=== PATIENT | female | born 1955 | race Caucasian/White ===

== ENCOUNTER → 2017-09-08 | Outpatient (CLI) | payer OTHER ==
[~2017-09-08] MED LIST: ALBU8.5H8 INH; AMBR10TA3 PO; AMLO2.5T2 PO; AZEL50GE5 TP; CETI10CA PO; CHOL10002 PO; ESZO2TAB22 PO; FLUT15.88 INH; FURO40TA6 PO; GLUC100015 PO; LEVO200T5 PO; LISI5TAB7 PO; LUTE20TA PO; OMEG1CAP24 PO; RANI150C PO; SPIR25TA PO; TRAZ100T15 PO; TRIA1CAP3 PO; UBID30CA9 PO; VITA150T PO; VITA400C14 PO
== END | disposition home or self-care (01) ==
LOC: CFH 10:04
PROVIDERS: ATTEND Registered Nurse
DX: K74.60 Unspecified cirrhosis of liver (principal); J98.11 Atelectasis; R91.1 Solitary pulmonary nodule; Z09 Encounter for follow-up examination after completed treatment for conditions other than malignant neoplasm; Z87.891 Personal history of nicotine dependence
CPT/HCPCS: 71250

== ENCOUNTER → 2018-09-05 | Outpatient (CLI) | payer OTHER ==
[~2018-09-05] MED LIST changes: +TRAZ-137 PO; -TRAZ100T15 PO
== END | disposition home or self-care (01) ==
LOC: CFH 07:21
PROVIDERS: ATTEND Registered Nurse
DX: Z12.31 Encounter for screening mammogram for malignant neoplasm of breast (principal); J45.30 Mild persistent asthma, uncomplicated; J98.11 Atelectasis; R91.1 Solitary pulmonary nodule; I28.1 Aneurysm of pulmonary artery; M47.814 Spondylosis without myelopathy or radiculopathy, thoracic region; K74.60 Unspecified cirrhosis of liver
CPT/HCPCS: 71250; 77067

== ENCOUNTER → 2019-04-12 | Outpatient (CLI) | payer OTHER ==
[~2019-04-12] MED LIST changes: +FLUT15.845 INH; -FLUT15.88 INH
== END | disposition home or self-care (01) ==
LOC: CFH 15:13
PROVIDERS: ATTEND Internal Medicine Cardiovascular Disease
DX: I08.8 Other rheumatic multiple valve diseases (principal); I27.0 Primary pulmonary hypertension; E78.5 Hyperlipidemia, unspecified; F14.10 Cocaine abuse, uncomplicated
CPT/HCPCS: 93306

== ENCOUNTER → 2020-03-05 | Outpatient (CLI) | payer OTHER ==
[~2020-03-05] MED LIST changes: +ATOR20TA37 PO; +CHOL10003 PO; +FAMO20TA7 PO; +FLUT1AER INH; +LUTE20CA2 PO; +MONT10TA11 PO; +OMEG1CAP6 PO; +POTA20TA89 PO; -TRAZ-137 PO; +TRAZ-175 PO; +VITA400C43 PO
[2020-03-05 16:27] LABS: INTERNATIONAL NORMALIZED RATIO 1.2 (0.93-1.1); PROTHROMBIN TIME 12.4 Seconds (9.6-11.5)
[2020-03-05 16:28] LABS: ALANINE AMINOTRANSFERASE 50 U/L (12-78); ALBUMIN 3.3 g/dL (3.4-5.0)
[2020-03-05 16:30] LABS: ALKALINE PHOSPHATASE 115 U/L (45-117); TOTAL PROTEIN 6.7 g/dL (6.4-8.2)
[2020-03-05 16:31] LABS: BASOPHILS % (AUTO) 1 % (0-1); EOSINOPHILS % (AUTO) 6 % (1-7); LYMPHOCYTES % (AUTO) 21 % (22-44); MEAN CORPUSCULAR HEMOGLOBIN 26.9 pg (27.0-34.8); MEAN CORPUSCULAR HGB CONC 32.2 g/dL (32.4-35.8); MEAN PLATELET VOLUME 9.4 fL (7.4-10.4); MONOCYTES % (AUTO) 11 % (2-9); NEUTROPHILS % (AUTO) 62 % (42-75); PLATELET COUNT 111 x10^3/uL (130-400); RED BLOOD COUNT 4.75 x10^6/uL (3.82-5.3); RED CELL DISTRIBUTION WIDTH 19.8 % (9.6-15.2)
[2020-03-05 16:35] LABS: MD NO
[2020-03-05 16:36] LABS: ANION GAP 6 mmol/L (5-15); CHLORIDE 110 mmol/L (98-107)
== END | disposition home or self-care (01) ==
LOC: STAR 14:41
PROVIDERS: ATTEND Orthopaedic Surgery
DX: Z01.818 Encounter for other preprocedural examination (principal); M16.11 Unilateral primary osteoarthritis, right hip
CPT/HCPCS: 36415; 80053; 83036; 85025; 85610; 85730; 87081; 93005

== ENCOUNTER → 2020-03-08 | Outpatient (CLI) | payer OTHER ==
[~2020-03-08] MED LIST changes: +OMEPRAZOLE PEG
== END | disposition home or self-care (01) ==
LOC: STAR 15:11
PROVIDERS: ATTEND Anesthesiology
DX: Z01.812 Encounter for preprocedural laboratory examination (principal); Z20.828 Contact with and (suspected) exposure to other viral communicable diseases
CPT/HCPCS: 36415; 87635

== ENCOUNTER 2020-03-13 07:45 | Day surgery (SDC) | payer OTHER ==
[~2020-03-13] VITALS: Ht 162.6 cm; Wt 96.0 kg
[~2020-03-13 07:45] MED LIST changes: +ACETAMINOPHEN 650 MG/20.3 ML UDC PO PRN; +ALBUTEROL HFA 90 MCG/SPRAY INH PRN; +BISACODYL 10 MG SUPP PR PRN; +DIPHENHYDRAMINE 50 MG CAPSULE PO PRN; +HYDROcodone/APAP 5/325 TABLET PO PRN; +MAGNESIUM HYDROXIDE 8%, 30ML UDC PO PRN; +NS + 20MEQ KCL 1,000 ML IV SCH; -OMEPRAZOLE PEG; +ONDANSETRON 2MG/ML, 2ML IV PRN; +ONDANSETRON 4 MG TABLET PO PRN; +SENNA/DOCUSATE TABLET PO PRN; +ZOLPIDEM 5MG TABLET PO PRN
[2020-03-13] MEDS ORDERED: LACTATED RINGERS 1,000 ML IV SCH ×2 (08:30→09:00)
[2020-03-13] MEDS ORDERED: CHLORHEXIDINE 15 ML UDC MM ONE (08:30)
[2020-03-13] MEDS ORDERED: OMEPRAZOLE PEG (08:51)
[2020-03-13] MEDS ORDERED: SPIRONOLACTONE 25 MG TABLET PO SCH (09:00)
[2020-03-13] MEDS ORDERED: POTASSIUM CHLORIDE 20 MEQ TAB.ER.PRT PO SCH (09:00)
[2020-03-13] MEDS ORDERED: DOCUSATE 100 MG CAPSULE PO SCH (09:00)
[2020-03-13] MEDS ORDERED: FLUTICASONE/VILANTEROL 100-25MCG/INH INH SCH (09:00)
[2020-03-13] MEDS ORDERED: LEVOTHYROXINE 200 MCG TABLET PO SCH (09:00)
[2020-03-13] MEDS ORDERED: FUROSEMIDE 20 MG TABLET PO SCH (09:00)
[2020-03-13] MEDS ORDERED: VANCOMYCIN 1,000 MG ONE (09:02)
[2020-03-13] MEDS ORDERED: TRANEXAMIC ACID 100 MG/ML, 10ML ONE ×2 (09:02)
[2020-03-13] MEDS ORDERED: ROPIvacaine/PF 0.5%, 20 ML ONE (09:02)
[2020-03-13] MEDS ORDERED: ROPIvacaine/PF 0.5%, 30 ML ONE (09:02)
[2020-03-13] MEDS ORDERED: SODIUM CHLORIDE 0.9% 50 ML ONE (09:03)
[2020-03-13] MEDS ORDERED: EPINEPHRINE 1 MG/ML, 1ML ONE (09:03)
[2020-03-13] MEDS ORDERED: KETOROLAC 60 MG/2 ML ONE (09:28)
[2020-03-13] MEDS ORDERED: FENTANYL PF 250 MCG/5ML ONE (09:40)
[2020-03-13] MEDS ORDERED: MIDAZOLAM 1 MG/ML, 2ML ONE (09:40)
[2020-03-13] MEDS ORDERED: SUGAMMADEX 200 MG/2 ML IVPush ONE (10:37)
[2020-03-13] MEDS ORDERED: SUCCINYLCHOLINE 20 MG/ML, 10ML ONE (10:37)
[2020-03-13] MEDS ORDERED: PROPOFOL 10 MG/ML, 20ML ONE (10:37)
[2020-03-13] MEDS ORDERED: ONDANSETRON 2MG/ML, 2ML ONE (10:37)
[2020-03-13] MEDS ORDERED: CEFAZOLIN 1,000 MG ONE (10:37)
[2020-03-13] MEDS ORDERED: DEXAMETHASONE 4 MG/ML, 1ML ONE (10:37)
[2020-03-13] MEDS ORDERED: NEOSTIGMINE 1 MG/ML, 10ML ONE (10:37)
[2020-03-13] MEDS ORDERED: GLYCOPYRROLATE 0.2MG/1ML, 5ML ONE (10:37)
[2020-03-13] MEDS ORDERED: ROCURONIUM 10MG/ML,5ML ONE (10:37)
[2020-03-13] MEDS ORDERED: FENTANYL PF 100 MCG/2ML ONE ×3 (10:41→11:37)
[2020-03-13] MEDS ORDERED: LABETALOL 5MG/ML, 20ML IV PRN (11:00)
[2020-03-13] MEDS ORDERED: KETOROLAC 30 MG/1 ML IV PRN (11:00)
[2020-03-13] MEDS ORDERED: OXYcodone 5 MG/5 ML ORAL.SOL UDC PO PRN (11:00)
[2020-03-13] MEDS ORDERED: hydrALAzine 20 MG/ML, 1ML IV PRN (11:00)
[2020-03-13] MEDS ORDERED: PROMETHAZINE 25 MG/ML, 1ML IV PRN (11:00)
[2020-03-13] MEDS ORDERED: HYDROmorphone 2 MG/ML, 1ML IVPush PRN (11:00)
[2020-03-13] MEDS ORDERED: ALBUTEROL SULFATE 2.5 MG/3 ML NPPB PRN (11:00)
[2020-03-13] MEDS ORDERED: DIAZEPAM 5 MG/ML, 2ML IVPush PRN (11:00)
[2020-03-13] MEDS ORDERED: MEPERIDINE/PF 25MG/0.5ML IVPush PRN (11:00)
[2020-03-13] MEDS ORDERED: ACETAMINOPHEN 325 MG TABLET PO PRN (11:00)
[2020-03-13] MEDS: FENTANYL PF 100 MCG/2ML IV PRN ×4 (11:20→11:50)
[2020-03-13] MEDS ORDERED: OXYcodone 5 MG/5 ML ORAL.SOL UDC ONE ×2 (11:34→17:04)
[2020-03-13] MEDS ORDERED: MEPERIDINE/PF 25MG/ML,1ML ONE (12:19)
[2020-03-13] MEDS ORDERED: CEFAZOLIN PMX 2GM/50ML 50 ML IVPB SCH (14:00)
[2020-03-13 14:16] VITALS: BP 111/72
[2020-03-13] MEDS: OXYcodone IR 5MG TABLET PO PRN ×2 (17:45→21:42)
[2020-03-13] MEDS ORDERED: ASPIRIN 81 MG TABLET EC PO SCH (18:00)
[2020-03-13 18:37] VITALS: BP 129/79
[2020-03-13] MEDS ORDERED: FAMOTIDINE 20 MG TABLET PO SCH (21:00)
[2020-03-13] MEDS ORDERED: ATORVASTATIN 20 MG TABLET PO SCH (21:00)
[2020-03-13] MEDS ORDERED: MONTELUKAST 10 MG TABLET PO SCH (21:00)
[2020-03-13] MEDS ORDERED: AMLODIPINE 2.5 MG TABLET PO SCH (21:00)
[2020-03-14] MEDS ORDERED: DEXAMETHASONE 4 MG/ML, 1ML IVPush SCH (06:00)
== END 2020-03-13 22:00 | disposition home or self-care (01) ==
LOC: OUT 07:45 → 4NE 13:06 → OUT 22:00
PROVIDERS: ATTEND Orthopaedic Surgery
DX: M16.11 Unilateral primary osteoarthritis, right hip (principal); M25.751 Osteophyte, right hip; I10 Essential (primary) hypertension; E78.5 Hyperlipidemia, unspecified; I27.20 Pulmonary hypertension, unspecified; I25.10 Atherosclerotic heart disease of native coronary artery without angina pectoris; J45.909 Unspecified asthma, uncomplicated; G47.33 Obstructive sleep apnea (adult) (pediatric); E07.9 Disorder of thyroid, unspecified; Z79.890 Hormone replacement therapy; Z79.899 Other long term (current) drug therapy; Z86.19 Personal history of other infectious and parasitic diseases; Z99.81 Dependence on supplemental oxygen; Z98.890 Other specified postprocedural states
CPT/HCPCS: 27130; 72170; 73501; 97161; 97165; C1713; C1776; J0171; J0330; J0690; J1100; J1885; J2175; J2250; J2405; J2704; J2710; J2795; J3010; J3370; Q0162; 76000; G0378

== ENCOUNTER 2020-04-27 13:17 | Inpatient (IN) | payer OTHER ==
[~2020-04-27] VITALS: Ht 162.6 cm; Wt 103.0 kg
[~2020-04-27 13:17] MED LIST changes: -ACETAMINOPHEN 650 MG/20.3 ML UDC PO PRN; -ALBUTEROL HFA 90 MCG/SPRAY INH PRN; -BISACODYL 10 MG SUPP PR PRN; -DIPHENHYDRAMINE 50 MG CAPSULE PO PRN; -HYDROcodone/APAP 5/325 TABLET PO PRN; -MAGNESIUM HYDROXIDE 8%, 30ML UDC PO PRN; -NS + 20MEQ KCL 1,000 ML IV SCH; +OMEPRAZOLE PEG; -ONDANSETRON 2MG/ML, 2ML IV PRN; -ONDANSETRON 4 MG TABLET PO PRN; -SENNA/DOCUSATE TABLET PO PRN; -ZOLPIDEM 5MG TABLET PO PRN
[2020-04-27 15:08] LABS: BASOPHILS % (AUTO) 1 % (0-1); EOSINOPHILS % (AUTO) 4 % (1-7); LYMPHOCYTES % (AUTO) 17 % (22-44); MEAN CORPUSCULAR HEMOGLOBIN 25.7 pg (27.0-34.8); MEAN CORPUSCULAR HGB CONC 31.6 g/dL (32.4-35.8); MONOCYTES % (AUTO) 12 % (2-9); NEUTROPHILS % (AUTO) 67 % (42-75); PLATELET COUNT 126 x10^3/uL (130-400); RED BLOOD COUNT 4.33 x10^6/uL (3.82-5.3)
[2020-04-27 15:14] LABS: INTERNATIONAL NORMALIZED RATIO 1.34 (0.93-1.1); MD NO; PROTHROMBIN TIME 14.2 Seconds (9.6-11.5)
[2020-04-27 15:17] LABS: ALBUMIN 2.9 g/dL (3.4-5.0); ANION GAP 5 mmol/L (5-15); CALCIUM 8.3 mg/dL (8.5-10.1); CHLORIDE 110 mmol/L (98-107)
[2020-04-27 15:26] LABS: CREATININE 0.69 mg/dL (0.55-1.02)
[2020-04-27 15:27] LABS: ALANINE AMINOTRANSFERASE 42 U/L (12-78); ALKALINE PHOSPHATASE 123 U/L (45-117); BILIRUBIN,TOTAL 2.7 mg/dL (0.2-1.0); TOTAL PROTEIN 6.3 g/dL (6.4-8.2)
--- NOTE | 2020-04-27 17:10 | NUR ---
PT WALKED BACK TO ROOM. DECLINED WHEELCHAIR. SOB ON ARRIVAL TO ROOM. SATS 93. ABD PAIN UPPER QUADRANTS, WORSE WHEN COUGHING. +FLUID WAVE. DENIES HX PARACENTESIS. HEP C/LIVER FAILURE. CALL [facility]. VSS.
--- NOTE | 2020-04-27 17:38 | NUR ---
Pt resting in bed, states bilat UQ abd pain is 5/10 "not too bad". Pt denies nausea. POC discussed with pt. Pt requests this RN call her at home and give him an update. This RN called and spoke with pt's Mohan. Pt denies other needs.
[2020-04-27] MEDS ORDERED: SODIUM CHLORIDE 0.9% 1,000 ML IV ONE (18:00)
[2020-04-27] MEDS ORDERED: SODIUM CHLORIDE FLUSH 10ML SYR IVF PRN (18:00)
--- NOTE | 2020-04-27 18:31 | NUR ---
[facility] at bedside to evaluate pt for admission. Pt resting in bed, NADN.
[2020-04-27] MEDS ORDERED: ONDANSETRON ODT 4 MG PO PRN (19:00)
[2020-04-27] MEDS ORDERED: MELATONIN 5 MG TABLET PO PRN (19:00)
[2020-04-27] MEDS ORDERED: hydrALAzine 20 MG/ML, 1ML IVPush PRN (19:00)
[2020-04-27] MEDS ORDERED: DOCUSATE 100 MG CAPSULE PO PRN (19:00)
--- NOTE | 2020-04-27 19:07 | NUR ---
Report to Nils MERINO.
[2020-04-27 20:53] VITALS: BP 122/71
[2020-04-27 21:39] LABS: MICROSCOPIC NOT IND
[2020-04-27] MEDS ORDERED: POTASSIUM CHLORIDE 20 MEQ TAB.ER.PRT PO ONE (23:00)
[2020-04-27] MEDS: ATORVASTATIN 20 MG TABLET PO SCH (23:30)
[2020-04-27] MEDS: MONTELUKAST 10 MG TABLET PO SCH (23:30)
[2020-04-27] MEDS: AMLODIPINE 2.5 MG TABLET PO SCH (23:31)
[2020-04-28] MEDS: morphine SULFATE 10 MG/ML, 1ML IVPush PRN ×3 (00:14→08:39)
[2020-04-28 01:48] VITALS: BP 118/68
[2020-04-28 05:54] LABS: BASOPHILS % (AUTO) 2 % (0-1); EOSINOPHILS % (AUTO) 7 % (1-7); LYMPHOCYTES % (AUTO) 21 % (22-44); MEAN CORPUSCULAR HEMOGLOBIN 25.7 pg (27.0-34.8); MEAN CORPUSCULAR HGB CONC 31.9 g/dL (32.4-35.8); MEAN PLATELET VOLUME 9.2 fL (7.4-10.4); MONOCYTES % (AUTO) 11 % (2-9); NEUTROPHILS % (AUTO) 59 % (42-75); PLATELET COUNT 131 x10^3/uL (130-400); RED BLOOD COUNT 4.09 x10^6/uL (3.82-5.3); RED CELL DISTRIBUTION WIDTH 19.3 % (9.6-15.2)
[2020-04-28 06:07] LABS: CHLORIDE 113 mmol/L (98-107)
[2020-04-28 06:11] LABS: MD NO
[2020-04-28 06:27] LABS: ALANINE AMINOTRANSFERASE 37 U/L (12-78); ALBUMIN 2.8 g/dL (3.4-5.0); ALKALINE PHOSPHATASE 110 U/L (45-117); ANION GAP 9 mmol/L (5-15); BILIRUBIN,TOTAL 2.6 mg/dL (0.2-1.0); CALCIUM 8.4 mg/dL (8.5-10.1); CREATININE 0.68 mg/dL (0.55-1.02); TOTAL PROTEIN 5.9 g/dL (6.4-8.2)
[2020-04-28 08:33] VITALS: BP 127/75
[2020-04-28] MEDS ORDERED: OMNIPAQUE 350 MG/ML, 100ML BOTTLE ONE (08:45)
[2020-04-28] MEDS: CHOLECALCIFEROL 1,000 UNIT TABLET PO SCH (09:00)
[2020-04-28] MEDS ORDERED: LEVOTHYROXINE 200 MCG TABLET PO SCH (09:00)
[2020-04-28] MEDS: VITAMIN E 400 UNITS CAPSULE PO SCH (09:00)
[2020-04-28] MEDS: POTASSIUM CHLORIDE 20 MEQ TAB.ER.PRT PO SCH (09:54)
[2020-04-28] MEDS: CETIRIZINE 10 MG TABLET PO SCH (09:55)
[2020-04-28] MEDS: FUROSEMIDE 40 MG TABLET PO SCH (09:55)
[2020-04-28] MEDS: SPIRONOLACTONE 25 MG TABLET PO SCH (09:55)
[2020-04-28] MEDS: OMEGA-3/FISH OIL CAPSULE PO SCH (09:56)
[2020-04-28 10:25] LABS: FREE T4 (FREE THYROXINE) 1.69 ng/dL (0.76-1.46)
[2020-04-28 13:20] VITALS: BP 116/68
[2020-04-28] MEDS: D5%-0.45NACL+KCL 20MEQ 1,000 ML IV SCH (14:06)
[2020-04-28] MEDS: FLUTICASONE NASAL SPRAY 16GM NAS SCH (17:00)
[2020-04-28] MEDS: TEMPLATE NON-FORMULARY MED. (Ambrisentan (Letairis**) 10 MG) PO SCH (17:00)
[2020-04-28] MEDS: TEMPLATE NON-FORMULARY MED. (Lutein** 20 MG) PO SCH (17:00)
[2020-04-28] MEDS: FLUTICASONE/VILANTEROL 100-25MCG/INH INH SCH (18:08)
[2020-04-28 19:11] VITALS: BP 112/69
[2020-04-28 20:23] VITALS: BP 97/59
[2020-04-28] MEDS: AMLODIPINE 2.5 MG TABLET PO SCH (20:24)
[2020-04-28] MEDS: MONTELUKAST 10 MG TABLET PO SCH (20:25)
[2020-04-28] MEDS: ATORVASTATIN 20 MG TABLET PO SCH (20:25)
[2020-04-28] MEDS: GABAPENTIN 300 MG CAPSULE PO PRN (22:07)
[2020-04-29] MEDS: D5%-0.45NACL+KCL 20MEQ 1,000 ML IV SCH ×3 (00:59→22:34)
[2020-04-29 01:44] VITALS: BP 93/69
[2020-04-29 06:03] LABS: ALBUMIN 2.4 g/dL (3.4-5.0); ANION GAP 4 mmol/L (5-15); CALCIUM 7.8 mg/dL (8.5-10.1); CHLORIDE 112 mmol/L (98-107); CREATININE 0.54 mg/dL (0.55-1.02)
[2020-04-29] MEDS: OMEPRAZOLE 20 MG CAPSULE.DR PEG SCH (06:43)
[2020-04-29 08:24] VITALS: BP 117/68
[2020-04-29] MEDS: FLUTICASONE/VILANTEROL 100-25MCG/INH INH SCH (10:35)
[2020-04-29] MEDS: FLUTICASONE NASAL SPRAY 16GM NAS SCH (10:35)
[2020-04-29] MEDS: POTASSIUM CHLORIDE 20 MEQ TAB.ER.PRT PO SCH (10:35)
[2020-04-29] MEDS: LIOTHYRONINE 5 MCG TABLET PO SCH (10:35)
[2020-04-29] MEDS: TIOTROPIUM BROMIDE 18 MCG/INH INH SCH (10:35)
[2020-04-29] MEDS: OMEGA-3/FISH OIL CAPSULE PO SCH (10:36)
[2020-04-29] MEDS: LEVOTHYROXINE 150 MCG TABLET PO SCH (10:36)
[2020-04-29] MEDS: VITAMIN E 400 UNITS CAPSULE PO SCH (10:36)
[2020-04-29] MEDS: FUROSEMIDE 40 MG TABLET PO SCH (10:37)
[2020-04-29] MEDS: SPIRONOLACTONE 25 MG TABLET PO SCH (10:37)
[2020-04-29] MEDS: CETIRIZINE 10 MG TABLET PO SCH (10:37)
[2020-04-29] MEDS: CHOLECALCIFEROL 1,000 UNIT TABLET PO SCH (10:37)
[2020-04-29] MEDS: TEMPLATE NON-FORMULARY MED. (Lutein** 20 MG) PO SCH (10:38)
[2020-04-29 14:00] VITALS: BP 112/69
[2020-04-29 18:55] VITALS: BP 117/67
[2020-04-29] MEDS: TEMPLATE NON-FORMULARY MED. (Ambrisentan (Letairis**) 10 MG) PO SCH (19:00)
[2020-04-29] MEDS: ATORVASTATIN 20 MG TABLET PO SCH (22:35)
[2020-04-29] MEDS: AMLODIPINE 2.5 MG TABLET PO SCH (22:35)
[2020-04-29] MEDS: MONTELUKAST 10 MG TABLET PO SCH (22:35)
[2020-04-29] MEDS: GABAPENTIN 300 MG CAPSULE PO PRN (22:36)
[2020-04-30 00:46] VITALS: BP 114/68
[2020-04-30] MEDS: D5%-0.45NACL+KCL 20MEQ 1,000 ML IV SCH ×2 (05:37→20:16)
[2020-04-30 05:42] LABS: BASOPHILS % (AUTO) 2 % (0-1); EOSINOPHILS % (AUTO) 8 % (1-7); LYMPHOCYTES % (AUTO) 22 % (22-44); MEAN CORPUSCULAR HGB CONC 32.2 g/dL (32.4-35.8); MONOCYTES % (AUTO) 13 % (2-9); NEUTROPHILS % (AUTO) 55 % (42-75); PLATELET COUNT 129 x10^3/uL (130-400); RED BLOOD COUNT 3.83 x10^6/uL (3.82-5.3); RED CELL DISTRIBUTION WIDTH 19.4 % (9.6-15.2)
[2020-04-30 05:47] LABS: CHLORIDE 111 mmol/L (98-107)
[2020-04-30 05:49] LABS: MD NO
[2020-04-30 05:56] LABS: ALANINE AMINOTRANSFERASE 32 U/L (12-78); ALBUMIN 2.6 g/dL (3.4-5.0); ALKALINE PHOSPHATASE 101 U/L (45-117); ANION GAP 9 mmol/L (5-15); BILIRUBIN,TOTAL 2.2 mg/dL (0.2-1.0); C-REACTIVE PROTEIN, QUANT 0.12 mg/dL (0.02-0.49); CREATININE 0.61 mg/dL (0.55-1.02); TOTAL PROTEIN 5.4 g/dL (6.4-8.2)
[2020-04-30] MEDS: OMEPRAZOLE 20 MG CAPSULE.DR PEG SCH (06:30)
[2020-04-30] MEDS: TEMPLATE NON-FORMULARY MED. (Ambrisentan (Letairis**) 10 MG) PO SCH (09:00)
[2020-04-30] MEDS: TEMPLATE NON-FORMULARY MED. (Lutein** 20 MG) PO SCH (09:00)
[2020-04-30] MEDS: OMEGA-3/FISH OIL CAPSULE PO SCH (09:00)
[2020-04-30] MEDS: FLUTICASONE/VILANTEROL 100-25MCG/INH INH SCH (09:00)
[2020-04-30 09:20] VITALS: BP 130/71
[2020-04-30] MEDS: LEVOTHYROXINE 150 MCG TABLET PO SCH (11:58)
[2020-04-30] MEDS: CHOLECALCIFEROL 1,000 UNIT TABLET PO SCH (11:58)
[2020-04-30] MEDS: CETIRIZINE 10 MG TABLET PO SCH (11:58)
[2020-04-30] MEDS: POTASSIUM CHLORIDE 20 MEQ TAB.ER.PRT PO SCH (11:59)
[2020-04-30] MEDS: FUROSEMIDE 40 MG TABLET PO SCH (11:59)
[2020-04-30] MEDS: VITAMIN E 400 UNITS CAPSULE PO SCH (11:59)
[2020-04-30] MEDS: FLUTICASONE NASAL SPRAY 16GM NAS SCH (12:06)
[2020-04-30] MEDS: SPIRONOLACTONE 25 MG TABLET PO SCH (12:06)
[2020-04-30] MEDS: TIOTROPIUM BROMIDE 18 MCG/INH INH SCH (12:06)
[2020-04-30] MEDS: LIOTHYRONINE 5 MCG TABLET PO SCH (12:06)
[2020-04-30 13:50] VITALS: BP 116/70
[2020-04-30 20:00] LABS: % IRON SATURATION 7 % (20-55); IRON LEVEL 17 mcg/dL (50-170); TOTAL IRON BINDING CAPACITY 238 mcg/dL (250-450)
[2020-04-30] MEDS ORDERED: POTASSIUM CHLORIDE 20 MEQ TAB.ER.PRT PO ONE (20:00)
[2020-04-30 20:03] VITALS: BP 110/61
[2020-04-30] MEDS ORDERED: FLU VACC QS2020-21(6MOS UP)/PF 60MCG/0.5 ML SYR IM ONE (20:30)
[2020-04-30] MEDS: MONTELUKAST 10 MG TABLET PO SCH (22:10)
[2020-04-30] MEDS: ATORVASTATIN 20 MG TABLET PO SCH (22:10)
[2020-04-30] MEDS: AMLODIPINE 2.5 MG TABLET PO SCH (22:11)
[2020-04-30] MEDS: GABAPENTIN 300 MG CAPSULE PO PRN (22:17)
[2020-05-01 01:57] VITALS: BP 129/62
[2020-05-01] MEDS: OMEPRAZOLE 20 MG CAPSULE.DR PEG SCH (05:05)
[2020-05-01] MEDS: D5%-0.45NACL+KCL 20MEQ 1,000 ML IV SCH ×2 (05:06→16:32)
[2020-05-01 06:15] LABS: BASOPHILS % (AUTO) 2 % (0-1); EOSINOPHILS % (AUTO) 7 % (1-7); LYMPHOCYTES % (AUTO) 18 % (22-44); MEAN CORPUSCULAR HEMOGLOBIN 25.7 pg (27.0-34.8); MEAN CORPUSCULAR HGB CONC 32.1 g/dL (32.4-35.8); MEAN PLATELET VOLUME 8.6 fL (7.4-10.4); MONOCYTES % (AUTO) 14 % (2-9); NEUTROPHILS % (AUTO) 59 % (42-75); PLATELET COUNT 126 x10^3/uL (130-400); RED BLOOD COUNT 3.88 x10^6/uL (3.82-5.3); RED CELL DISTRIBUTION WIDTH 19.1 % (9.6-15.2)
[2020-05-01 06:21] LABS: HCT (SEDRATE) 30.6 % (34.6-47.8)
[2020-05-01 06:22] LABS: MD NO
[2020-05-01 06:23] LABS: CHLORIDE 112 mmol/L (98-107)
[2020-05-01 06:38] LABS: ALANINE AMINOTRANSFERASE 32 U/L (12-78); ALBUMIN 2.7 g/dL (3.4-5.0); ALKALINE PHOSPHATASE 102 U/L (45-117); ANION GAP 9 mmol/L (5-15); BILIRUBIN,TOTAL 2.5 mg/dL (0.2-1.0); CALCIUM 8.1 mg/dL (8.5-10.1); CHOL/HDL RATIO 1.8; CHOLESTEROL, TOTAL 61 mg/dL (140-239); CREATININE 0.61 mg/dL (0.55-1.02); HDL CHOL % 54 % (28-40); HDL CHOLESTEROL (DIRECT) 33 mg/dL (40-60); LDL CHOLESTEROL,CALCULATED 20 mg/dL (54-169); LDL/HDL RATIO 0.6 (0.5-3.0); TOTAL PROTEIN 5.4 g/dL (6.4-8.2); TRIGLYCERIDES 39 mg/dL (50-200); VLDL CHOLESTEROL 8 mg/dL (0-25)
[2020-05-01 07:10] VITALS: BP 109/57
[2020-05-01] MEDS: TIOTROPIUM BROMIDE 18 MCG/INH INH SCH (09:00)
[2020-05-01] MEDS: TEMPLATE NON-FORMULARY MED. (Ambrisentan (Letairis**) 10 MG) PO SCH (09:00)
[2020-05-01] MEDS: FLUTICASONE NASAL SPRAY 16GM NAS SCH (09:00)
[2020-05-01] MEDS: LIOTHYRONINE 5 MCG TABLET PO SCH (09:00)
[2020-05-01] MEDS: TEMPLATE NON-FORMULARY MED. (Lutein** 20 MG) PO SCH (09:00)
[2020-05-01] MEDS: FLUTICASONE/VILANTEROL 100-25MCG/INH INH SCH (10:02)
[2020-05-01] MEDS: CHOLECALCIFEROL 1,000 UNIT TABLET PO SCH (10:05)
[2020-05-01] MEDS: OMEGA-3/FISH OIL CAPSULE PO SCH (10:05)
[2020-05-01] MEDS: VITAMIN E 400 UNITS CAPSULE PO SCH (10:05)
[2020-05-01] MEDS: POTASSIUM CHLORIDE 20 MEQ TAB.ER.PRT PO SCH (10:06)
[2020-05-01] MEDS: CETIRIZINE 10 MG TABLET PO SCH (10:07)
[2020-05-01] MEDS: LEVOTHYROXINE 150 MCG TABLET PO SCH (10:07)
[2020-05-01] MEDS: FUROSEMIDE 40 MG TABLET PO SCH (10:13)
[2020-05-01] MEDS: SPIRONOLACTONE 25 MG TABLET PO SCH (10:14)
[2020-05-01 13:20] VITALS: BP 119/70
[2020-05-01 21:27] VITALS: BP 138/76
[2020-05-01] MEDS: ATORVASTATIN 20 MG TABLET PO SCH (22:17)
[2020-05-01] MEDS: AMLODIPINE 2.5 MG TABLET PO SCH (22:17)
[2020-05-01] MEDS: MONTELUKAST 10 MG TABLET PO SCH (22:17)
[2020-05-01] MEDS: GABAPENTIN 300 MG CAPSULE PO PRN (22:22)
[2020-05-02] MEDS: D5%-0.45NACL+KCL 20MEQ 1,000 ML IV SCH ×3 (01:19→19:54)
[2020-05-02 01:42] VITALS: BP 130/71
[2020-05-02] MEDS: OMEPRAZOLE 20 MG CAPSULE.DR PEG SCH (06:12)
[2020-05-02 06:26] LABS: CHLORIDE 112 mmol/L (98-107)
[2020-05-02 06:30] LABS: ANION GAP 4 mmol/L (5-15); C-REACTIVE PROTEIN, QUANT 0.07 mg/dL (0.02-0.49); CALCIUM 8.1 mg/dL (8.5-10.1); CREATININE 0.59 mg/dL (0.55-1.02)
[2020-05-02 06:34] LABS: BASOPHILS % (AUTO) 2 % (0-1); EOSINOPHILS % (AUTO) 9 % (1-7); LYMPHOCYTES % (AUTO) 17 % (22-44); MEAN CORPUSCULAR HEMOGLOBIN 26.1 pg (27.0-34.8); MEAN CORPUSCULAR HGB CONC 32.5 g/dL (32.4-35.8); MEAN PLATELET VOLUME 8.7 fL (7.4-10.4); MONOCYTES % (AUTO) 15 % (2-9); NEUTROPHILS % (AUTO) 56 % (42-75); PLATELET COUNT 126 x10^3/uL (130-400); RED BLOOD COUNT 3.88 x10^6/uL (3.82-5.3); RED CELL DISTRIBUTION WIDTH 19.6 % (9.6-15.2)
[2020-05-02 06:58] LABS: MD NO
[2020-05-02 07:23] LABS: HCT (SEDRATE) 31.1 % (34.6-47.8)
[2020-05-02] MEDS: TIOTROPIUM BROMIDE 18 MCG/INH INH SCH (09:00)
[2020-05-02] MEDS: TEMPLATE NON-FORMULARY MED. (Ambrisentan (Letairis**) 10 MG) PO SCH (09:00)
[2020-05-02] MEDS: TEMPLATE NON-FORMULARY MED. (Lutein** 20 MG) PO SCH (09:00)
[2020-05-02] MEDS: FLUTICASONE NASAL SPRAY 16GM NAS SCH (09:00)
[2020-05-02 09:45] VITALS: BP 143/70
[2020-05-02] MEDS: LIOTHYRONINE 5 MCG TABLET PO SCH (10:06)
[2020-05-02] MEDS: CETIRIZINE 10 MG TABLET PO SCH (10:07)
[2020-05-02] MEDS: VITAMIN E 400 UNITS CAPSULE PO SCH (10:07)
[2020-05-02] MEDS: OMEGA-3/FISH OIL CAPSULE PO SCH (10:07)
[2020-05-02] MEDS: FUROSEMIDE 40 MG TABLET PO SCH (10:07)
[2020-05-02] MEDS: CHOLECALCIFEROL 1,000 UNIT TABLET PO SCH (10:07)
[2020-05-02] MEDS: POTASSIUM CHLORIDE 20 MEQ TAB.ER.PRT PO SCH (10:07)
[2020-05-02] MEDS: LEVOTHYROXINE 150 MCG TABLET PO SCH (10:08)
[2020-05-02] MEDS: SPIRONOLACTONE 25 MG TABLET PO SCH (10:08)
[2020-05-02] MEDS: FLUTICASONE/VILANTEROL 100-25MCG/INH INH SCH (10:09)
[2020-05-02 13:59] VITALS: BP 125/73
[2020-05-02 20:16] VITALS: BP 112/71
[2020-05-02] MEDS: AMLODIPINE 2.5 MG TABLET PO SCH (21:08)
[2020-05-02] MEDS: MONTELUKAST 10 MG TABLET PO SCH (21:08)
[2020-05-02] MEDS: ATORVASTATIN 20 MG TABLET PO SCH (21:08)
[2020-05-02] MEDS: GABAPENTIN 300 MG CAPSULE PO PRN (21:22)
[2020-05-03 01:57] VITALS: BP 95/51
[2020-05-03] MEDS: D5%-0.45NACL+KCL 20MEQ 1,000 ML IV SCH (05:42)
[2020-05-03] MEDS: OMEPRAZOLE 20 MG CAPSULE.DR PEG SCH (05:45)
[2020-05-03 08:41] VITALS: BP 128/72
[2020-05-03] MEDS: FLUTICASONE/VILANTEROL 100-25MCG/INH INH SCH (09:00)
[2020-05-03] MEDS: TEMPLATE NON-FORMULARY MED. (Lutein** 20 MG) PO SCH (09:00)
[2020-05-03] MEDS: FLUTICASONE NASAL SPRAY 16GM NAS SCH (09:00)
[2020-05-03] MEDS: TEMPLATE NON-FORMULARY MED. (Ambrisentan (Letairis**) 10 MG) PO SCH (09:00)
[2020-05-03] MEDS: TIOTROPIUM BROMIDE 18 MCG/INH INH SCH (09:00)
[2020-05-03 09:22] LABS: ALBUMIN 2.9 g/dL (3.4-5.0); ANION GAP 7 mmol/L (5-15); CALCIUM 8.3 mg/dL (8.5-10.1); CHLORIDE 111 mmol/L (98-107)
[2020-05-03 09:26] LABS: ALANINE AMINOTRANSFERASE 36 U/L (12-78); ALKALINE PHOSPHATASE 110 U/L (45-117); BILIRUBIN,TOTAL 2.5 mg/dL (0.2-1.0); CREATININE 0.62 mg/dL (0.55-1.02); TOTAL PROTEIN 6.3 g/dL (6.4-8.2)
[2020-05-03] MEDS: LIOTHYRONINE 5 MCG TABLET PO SCH (09:33)
[2020-05-03] MEDS: POTASSIUM CHLORIDE 20 MEQ TAB.ER.PRT PO SCH (09:33)
[2020-05-03] MEDS: VITAMIN E 400 UNITS CAPSULE PO SCH (09:34)
[2020-05-03] MEDS: CETIRIZINE 10 MG TABLET PO SCH (09:34)
[2020-05-03] MEDS: SPIRONOLACTONE 25 MG TABLET PO SCH (09:34)
[2020-05-03] MEDS: OMEGA-3/FISH OIL CAPSULE PO SCH (09:34)
[2020-05-03] MEDS: CHOLECALCIFEROL 1,000 UNIT TABLET PO SCH (09:34)
[2020-05-03] MEDS: FUROSEMIDE 40 MG TABLET PO SCH (09:34)
[2020-05-03] MEDS: LEVOTHYROXINE 150 MCG TABLET PO SCH (09:34)
[2020-05-03 13:20] VITALS: BP 116/68
[2020-05-03] MEDS ORDERED: OXYC5TAB3 PO (14:22)
[2020-05-03] MEDS ORDERED: TIOT18CA INH (14:22)
[2020-05-03] MEDS ORDERED: ONDA4TAB13 PO (14:22)
[2020-05-03] MEDS ORDERED: POTASSIUM CHLORIDE 20 MEQ TAB.ER.PRT PO ONE (14:30)
== END 2020-05-03 15:45 | disposition home or self-care (01) | DRG 439 ==
LOC: ED 17:35 → EDIP 18:04 → 4NE 20:39
PROVIDERS: ADMIT Family Medicine; ATTEND Internal Medicine
PROC: 5A09357 Assistance with Respiratory Ventilation, Less than 24 Consecutive Hours, Continuous Positive Airway Pressure (ICD-10-PCS; principal; 2020-04-29)
PROC: 5A09357 Assistance with Respiratory Ventilation, Less than 24 Consecutive Hours, Continuous Positive Airway Pressure (ICD-10-PCS; 2020-04-30)
PROC: 5A09357 Assistance with Respiratory Ventilation, Less than 24 Consecutive Hours, Continuous Positive Airway Pressure (ICD-10-PCS; 2020-05-02)
PROC: 5A09357 Assistance with Respiratory Ventilation, Less than 24 Consecutive Hours, Continuous Positive Airway Pressure (ICD-10-PCS; 2020-05-03)
DX: K85.90 Acute pancreatitis without necrosis or infection, unspecified (principal); R18.8 Other ascites; D69.6 Thrombocytopenia, unspecified; E03.9 Hypothyroidism, unspecified; K74.60 Unspecified cirrhosis of liver; D50.9 Iron deficiency anemia, unspecified; E66.01 Morbid (severe) obesity due to excess calories; E78.5 Hyperlipidemia, unspecified; E87.6 Hypokalemia; I10 Essential (primary) hypertension; G47.33 Obstructive sleep apnea (adult) (pediatric); B18.2 Chronic viral hepatitis C; R16.1 Splenomegaly, not elsewhere classified; Z96.641 Presence of right artificial hip joint; K76.0 Fatty (change of) liver, not elsewhere classified; I27.20 Pulmonary hypertension, unspecified; J45.909 Unspecified asthma, uncomplicated; K21.9 Gastro-esophageal reflux disease without esophagitis; Z79.899 Other long term (current) drug therapy; Z80.6 Family history of leukemia; Z82.3 Family history of stroke; Z82.5 Family history of asthma and other chronic lower respiratory diseases; Z83.3 Family history of diabetes mellitus; Z90.49 Acquired absence of other specified parts of digestive tract; Z90.710 Acquired absence of both cervix and uterus; Z23 Encounter for immunization; Z79.890 Hormone replacement therapy; Z68.39 Body mass index [BMI] 39.0-39.9, adult
CPT/HCPCS: 36415; 71045; 74160; 76700; 80048; 80053; 80061; 80069; 81003; 82150; 82728; 82787; 83036; 83540; 83550; 83690; 83735; 83880; 84439; 84443; 84478; 84481; 85025; 85610; 85651; 86140; 90686; 93005; 99285; G0378; Q9967; J2270; J3480; J7030

== ENCOUNTER 2020-05-23 15:15 | Inpatient (IN) | payer OTHER ==
[~2020-05-23] VITALS: Ht 162.6 cm; Wt 111.0 kg
[~2020-05-23 15:15] MED LIST changes: -MONT10TA11 PO; +MONT10TA96 PO; +ONDA4TAB13 PO; +OXYC5TAB3 PO; +TIOT18CA INH
[2020-05-23] MEDS ORDERED: ACETAMINOPHEN 325 MG TABLET PO ONE (16:00)
[2020-05-23] MEDS ORDERED: ACETAMINOPHEN 325 MG TABLET ONE (16:23)
[2020-05-23 16:32] LABS: BASOPHILS % (AUTO) 1 % (0-1); EOSINOPHILS % (AUTO) 0 % (1-7); LYMPHOCYTES % (AUTO) 4 % (22-44); MEAN CORPUSCULAR HEMOGLOBIN 24.9 pg (27.0-34.8); MEAN CORPUSCULAR HGB CONC 32.2 g/dL (32.4-35.8); MEAN PLATELET VOLUME 9.1 fL (7.4-10.4); MONOCYTES % (AUTO) 8 % (2-9); NEUTROPHILS % (AUTO) 87 % (42-75); PLATELET COUNT 126 x10^3/uL (130-400); RED BLOOD COUNT 4.33 x10^6/uL (3.82-5.3); RED CELL DISTRIBUTION WIDTH 20.3 % (9.6-15.2)
[2020-05-23 16:43] LABS: ALBUMIN 2.9 g/dL (3.4-5.0); ANION GAP 6 mmol/L (5-15); C-REACTIVE PROTEIN, QUANT 0.62 mg/dL (0.02-0.49); CHLORIDE 106 mmol/L (98-107)
[2020-05-23 16:48] LABS: ALANINE AMINOTRANSFERASE 38 U/L (12-78); ALKALINE PHOSPHATASE 107 U/L (45-117); CREATININE 0.78 mg/dL (0.55-1.02); TOTAL PROTEIN 6.2 g/dL (6.4-8.2)
[2020-05-23 16:51] LABS: D-DIMER (DIC) 11.01 ug/mlFEU (0.00-0.52); PROTIME 14.4 Seconds (9.6-11.5)
[2020-05-23] MEDS ORDERED: DOXYCYCLINE 100MG TABLET PO ONE (17:00)
[2020-05-23] MEDS ORDERED: DEXAMETHASONE 4 MG/ML, 1ML IV ONE (17:00)
[2020-05-23] MEDS ORDERED: POTASSIUM CHLORIDE 20 MEQ TAB.ER.PRT PO ONE (17:00)
[2020-05-23] MEDS ORDERED: CEFTRIAXONE PMX 1GM/50ML 50 ML IVPB ONE (17:00)
[2020-05-23] MEDS ORDERED: CEFTRIAXONE PMX 1GM/50ML 50 ML ONE (17:04)
[2020-05-23] MEDS ORDERED: DOXYCYCLINE 100MG TABLET ONE (17:04)
[2020-05-23] MEDS ORDERED: DEXAMETHASONE 4 MG/ML, 1ML ONE (17:04)
[2020-05-23] MEDS ORDERED: POTASSIUM CHLORIDE 20 MEQ TAB.ER.PRT ONE (17:04)
[2020-05-23] MEDS ORDERED: SODIUM CHLORIDE FLUSH 10ML SYR IVF PRN (17:30)
[2020-05-23] MEDS ORDERED: POTASSIUM CHLORIDE 20 MEQ in SODIUM CHLORIDE 0.9% 1,000 ML IV ONE (17:30)
[2020-05-23 17:38] LABS: MD MORPH REVIEW ONLY
[2020-05-23 17:39] LABS: ANISOCYTOSIS 1+
[2020-05-23 17:40] LABS: <PLATELET ESTIMATE> DECREASED; <PLT MORPHOLOGY> NORMAL PLT MORPH; HYPOCHROMIA 1+; OVALOCYTES 1+; POLYCHROMASIA 1+
[2020-05-23] MEDS ORDERED: OMNIPAQUE 350 MG/ML, 100ML BOTTLE ONE (18:51)
[2020-05-23] MEDS ORDERED: GUAIFENESIN/DM 200-20MG, 10ML UDC PO PRN (19:30)
[2020-05-23] MEDS ORDERED: LIDODERM 5% PATCH TD PRN (19:30)
[2020-05-23] MEDS ORDERED: PHARMACY MAY ADJ FOR RENAL FX MC PRN (19:30)
[2020-05-23] MEDS ORDERED: LABETALOL 5MG/ML, 20ML IVPush PRN (19:30)
[2020-05-23] MEDS ORDERED: IBUPROFEN 600 MG TABLET PO PRN (19:30)
[2020-05-23] MEDS ORDERED: ONDANSETRON ODT 4 MG PO PRN (19:30)
[2020-05-23] MEDS ORDERED: DOCUSATE 100 MG CAPSULE PO PRN (19:30)
[2020-05-23] MEDS ORDERED: NS + 20MEQ KCL 1,000 ML IV ONE (19:49)
[2020-05-23] MEDS ORDERED: LIDODERM REMOVE PATCH NOTE XX PRN (20:00)
[2020-05-23] MEDS ORDERED: ENOXAPARIN 40 MG/0.4 ML ONE (20:15)
[2020-05-23] MEDS: ASCORBIC ACID 500 MG TABLET PO SCH (20:57)
[2020-05-23] MEDS: ENOXAPARIN 40 MG/0.4 ML SQ SCH (20:58)
[2020-05-23 21:00] VITALS: BP 109/63
[2020-05-23] MEDS: POTASSIUM CHLORIDE 20 MEQ in LACTATED RINGERS 1,000 ML IV SCH (21:22)
[2020-05-23 22:32] LABS: RAPID INFLUENZA A Negative (Negative); RAPID INFLUENZA B Negative (Negative)
[2020-05-24 00:01] VITALS: BP 110/56
[2020-05-24] MEDS: POTASSIUM CHLORIDE 20 MEQ in LACTATED RINGERS 1,000 ML IV SCH (05:21)
[2020-05-24] MEDS: ALBUTEROL HFA 90 MCG/SPRAY INH SCH ×4 (05:22→20:43)
[2020-05-24 06:43] VITALS: BP 111/63
[2020-05-24 07:09] LABS: BASOPHILS % (AUTO) 0 % (0-1); EOSINOPHILS % (AUTO) 0 % (1-7); LYMPHOCYTES % (AUTO) 7 % (22-44); MEAN CORPUSCULAR HEMOGLOBIN 24.4 pg (27.0-34.8); MEAN CORPUSCULAR HGB CONC 31.6 g/dL (32.4-35.8); MEAN PLATELET VOLUME 9.4 fL (7.4-10.4); MONOCYTES % (AUTO) 5 % (2-9); NEUTROPHILS % (AUTO) 89 % (42-75); PLATELET COUNT 98 x10^3/uL (130-400); RED BLOOD COUNT 4.23 x10^6/uL (3.82-5.3); RED CELL DISTRIBUTION WIDTH 20.5 % (9.6-15.2)
[2020-05-24 07:10] LABS: HCT (SEDRATE) 31.7 % (34.6-47.8); MD NO
[2020-05-24 07:16] LABS: ANION GAP 9 mmol/L (5-15); C-REACTIVE PROTEIN, QUANT 0.87 mg/dL (0.02-0.49); CALCIUM 8.8 mg/dL (8.5-10.1); CHLORIDE 106 mmol/L (98-107); CREATININE 0.64 mg/dL (0.55-1.02)
[2020-05-24 07:21] LABS: CREATINE KINASE, TOTAL 208 U/L (26-192)
[2020-05-24] MEDS: ZINC SULFATE 220 MG CAPSULE PO SCH (08:45)
[2020-05-24] MEDS: DEXAMETHASONE 4 MG/ML, 1ML IVPush SCH (08:45)
[2020-05-24] MEDS: ASCORBIC ACID 500 MG TABLET PO SCH ×2 (08:45→20:38)
[2020-05-24] MEDS: DOXYCYCLINE 100 MG in DEXTROSE 5% 250 ML IV SCH ×2 (08:45→21:26)
[2020-05-24] MEDS: CHOLECALCIFEROL 5,000u TAB PO SCH (08:46)
[2020-05-24] MEDS ORDERED: DOXY100T23 PO (11:22)
[2020-05-24] MEDS ORDERED: DEXA6TAB6 PO (11:23)
[2020-05-24] MEDS ORDERED: BENZ100C PO (11:24)
[2020-05-24] MEDS: FLUTICASONE/VILANTEROL 100-25MCG/INH INH SCH (11:28)
[2020-05-24] MEDS: TIOTROPIUM BROMIDE 18 MCG/INH INH SCH (11:28)
[2020-05-24 12:41] VITALS: BP 123/69
[2020-05-24] MEDS ORDERED: VANCOMYCIN PER PHARMACY MC PRN (15:00)
[2020-05-24] MEDS ORDERED: PHARMACOKINETIC MONITORING MC PRN (15:30)
[2020-05-24] MEDS ORDERED: VANCOMYCIN 2,500 MG in SODIUM CHLORIDE 0.9% 500 ML IV ONE (15:30)
[2020-05-24] MEDS ORDERED: PHARMACOKINETIC CONSULTATION MC ONE (15:30)
[2020-05-24] MEDS ORDERED: CEFTRIAXONE PMX 1GM/50ML 50 ML IV SCH (17:00)
[2020-05-24] MEDS: ENOXAPARIN 40 MG/0.4 ML SQ SCH (20:39)
[2020-05-24 20:46] VITALS: BP 112/68
[2020-05-25 02:11] VITALS: BP 110/66
[2020-05-25] MEDS: ALBUTEROL HFA 90 MCG/SPRAY INH SCH ×4 (06:00→20:07)
[2020-05-25 07:08] LABS: HCT (SEDRATE) 30.5 % (34.6-47.8)
[2020-05-25 07:22] LABS: C-REACTIVE PROTEIN, QUANT 0.79 mg/dL (0.02-0.49); D-DIMER 8.94 ug/mlFEU (0.00-0.52); INTERNATIONAL NORMALIZED RATIO 1.34 (0.93-1.1); PROTHROMBIN TIME 14.2 Seconds (9.6-11.5)
[2020-05-25 07:40] VITALS: BP 112/70
[2020-05-25] MEDS ORDERED: POTASSIUM CHLORIDE 20 MEQ TAB.ER.PRT PO ONE (08:00)
[2020-05-25] MEDS: FUROSEMIDE 40 MG TABLET PO SCH (08:30)
[2020-05-25] MEDS: ZINC SULFATE 220 MG CAPSULE PO SCH (08:30)
[2020-05-25] MEDS: CETIRIZINE 10 MG TABLET PO SCH (08:30)
[2020-05-25] MEDS: ASCORBIC ACID 500 MG TABLET PO SCH ×2 (08:30→20:08)
[2020-05-25] MEDS: CHOLECALCIFEROL 5,000u TAB PO SCH (08:31)
[2020-05-25] MEDS: DEXAMETHASONE 4 MG/ML, 1ML IVPush SCH (08:31)
[2020-05-25] MEDS: SPIRONOLACTONE 25 MG TABLET PO SCH (08:31)
[2020-05-25] MEDS: TIOTROPIUM BROMIDE 18 MCG/INH INH SCH (08:35)
[2020-05-25] MEDS: FLUTICASONE/VILANTEROL 100-25MCG/INH INH SCH (08:35)
[2020-05-25] MEDS: DOXYCYCLINE 100 MG in DEXTROSE 5% 250 ML IV SCH ×2 (09:38→20:07)
[2020-05-25] MEDS: VANCOMYCIN 2,000 MG in SODIUM CHLORIDE 0.9% 500 ML IV SCH (11:01)
[2020-05-25 13:29] VITALS: BP 113/66
[2020-05-25] MEDS: ENOXAPARIN 40 MG/0.4 ML SQ SCH (19:30)
[2020-05-25] MEDS: MONTELUKAST 10 MG TABLET PO SCH (20:08)
[2020-05-25] MEDS: MELATONIN 5 MG TABLET PO PRN ×2 (20:08→20:09)
[2020-05-25 20:36] VITALS: BP 115/70
[2020-05-26 00:39] VITALS: BP 125/70
[2020-05-26] MEDS: VANCOMYCIN 2,000 MG in SODIUM CHLORIDE 0.9% 500 ML IV SCH (04:47)
[2020-05-26] MEDS: ALBUTEROL HFA 90 MCG/SPRAY INH SCH ×4 (04:47→23:05)
[2020-05-26 06:23] VITALS: BP 117/71
[2020-05-26 06:59] LABS: HCT (SEDRATE) 30.5 % (34.6-47.8)
[2020-05-26 07:09] LABS: C-REACTIVE PROTEIN, QUANT 0.51 mg/dL (0.02-0.49)
[2020-05-26 09:15] LABS: ANION GAP 9 mmol/L (5-15); CALCIUM 9.2 mg/dL (8.5-10.1); CHLORIDE 110 mmol/L (98-107); CREATININE 0.63 mg/dL (0.55-1.02)
[2020-05-26] MEDS: FLUTICASONE/VILANTEROL 100-25MCG/INH INH SCH (09:40)
[2020-05-26] MEDS: TIOTROPIUM BROMIDE 18 MCG/INH INH SCH (09:41)
[2020-05-26] MEDS: ZINC SULFATE 220 MG CAPSULE PO SCH (09:41)
[2020-05-26] MEDS: DOXYCYCLINE 100 MG in DEXTROSE 5% 250 ML IV SCH ×2 (09:41→22:36)
[2020-05-26] MEDS: DEXAMETHASONE 4 MG/ML, 1ML IVPush SCH (09:41)
[2020-05-26] MEDS: ASCORBIC ACID 500 MG TABLET PO SCH (09:42)
[2020-05-26] MEDS: FUROSEMIDE 40 MG TABLET PO SCH (09:42)
[2020-05-26] MEDS: SPIRONOLACTONE 25 MG TABLET PO SCH (09:42)
[2020-05-26] MEDS: CHOLECALCIFEROL 5,000u TAB PO SCH (09:42)
[2020-05-26] MEDS: CETIRIZINE 10 MG TABLET PO SCH (09:42)
[2020-05-26 12:03] VITALS: BP 113/66
[2020-05-26 13:45] VITALS: BP 119/68
[2020-05-26 20:21] VITALS: BP 110/55
[2020-05-26] MEDS ORDERED: VANCOMYCIN 2,200 MG in SODIUM CHLORIDE 0.9% 500 ML IV SCH (22:30)
[2020-05-26] MEDS: ENOXAPARIN 40 MG/0.4 ML SQ SCH (23:03)
[2020-05-26] MEDS: MONTELUKAST 10 MG TABLET PO SCH (23:06)
[2020-05-27 01:38] VITALS: BP 116/60
[2020-05-27 06:02] LABS: HCT (SEDRATE) 30.1 % (34.6-47.8)
[2020-05-27] MEDS: ALBUTEROL HFA 90 MCG/SPRAY INH SCH ×4 (06:22→22:14)
[2020-05-27 06:23] LABS: D-DIMER 12.68 ug/mlFEU (0.00-0.52); INTERNATIONAL NORMALIZED RATIO 1.33 (0.93-1.1); PROTHROMBIN TIME 14.1 Seconds (9.6-11.5)
[2020-05-27 06:25] LABS: C-REACTIVE PROTEIN, QUANT 0.33 mg/dL (0.02-0.49)
[2020-05-27 07:35] VITALS: BP 124/75
[2020-05-27] MEDS: Ambrisentan 10 MG HOMEMEDPO SCH (09:00)
[2020-05-27] MEDS: FLUTICASONE/VILANTEROL 100-25MCG/INH INH SCH (11:07)
[2020-05-27] MEDS: TIOTROPIUM BROMIDE 18 MCG/INH INH SCH (11:08)
[2020-05-27] MEDS: CEFAZOLIN 2,000 MG in SODIUM CHLORIDE 0.9% 50 ML IV SCH ×2 (11:09→18:43)
[2020-05-27] MEDS: FUROSEMIDE 40 MG/4 ML IV SCH ×2 (11:10→17:26)
[2020-05-27] MEDS: CETIRIZINE 10 MG TABLET PO SCH (11:11)
[2020-05-27] MEDS: SPIRONOLACTONE 25 MG TABLET PO SCH (11:11)
[2020-05-27 12:57] VITALS: BP 145/81
[2020-05-27] MEDS: DOXYCYCLINE 100 MG in DEXTROSE 5% 250 ML IV SCH (14:08)
[2020-05-27 19:43] VITALS: BP 112/65
[2020-05-27] MEDS: MONTELUKAST 10 MG TABLET PO SCH (22:14)
[2020-05-27] MEDS: ENOXAPARIN 40 MG/0.4 ML SQ SCH (22:15)
[2020-05-28] MEDS: DOXYCYCLINE 100 MG in DEXTROSE 5% 250 ML IV SCH ×2 (02:08→14:15)
[2020-05-28] MEDS: CEFAZOLIN 2,000 MG in SODIUM CHLORIDE 0.9% 50 ML IV SCH ×3 (03:13→20:01)
[2020-05-28 03:47] VITALS: BP 110/69
[2020-05-28] MEDS: ALBUTEROL HFA 90 MCG/SPRAY INH SCH ×4 (05:17→20:06)
[2020-05-28 06:21] LABS: ANION GAP 5 mmol/L (5-15); C-REACTIVE PROTEIN, QUANT 0.18 mg/dL (0.02-0.49); CALCIUM 8.1 mg/dL (8.5-10.1); CHLORIDE 110 mmol/L (98-107)
[2020-05-28 06:26] LABS: CREATINE KINASE, TOTAL 67 U/L (26-192); CREATININE 0.57 mg/dL (0.55-1.02)
[2020-05-28 08:35] VITALS: BP 113/70
[2020-05-28] MEDS: FUROSEMIDE 40 MG/4 ML IV SCH ×2 (08:58→17:18)
[2020-05-28] MEDS: CETIRIZINE 10 MG TABLET PO SCH (08:58)
[2020-05-28] MEDS: SPIRONOLACTONE 25 MG TABLET PO SCH (08:58)
[2020-05-28] MEDS: Ambrisentan 10 MG HOMEMEDPO SCH (09:00)
[2020-05-28] MEDS: TIOTROPIUM BROMIDE 18 MCG/INH INH SCH (11:22)
[2020-05-28] MEDS: FLUTICASONE/VILANTEROL 100-25MCG/INH INH SCH (11:22)
[2020-05-28 13:35] VITALS: BP 109/68
[2020-05-28] MEDS ORDERED: OMNIPAQUE 350 MG/ML, 100ML BOTTLE ONE (16:00)
[2020-05-28] MEDS: POTASSIUM CHLORIDE 20 MEQ TAB.ER.PRT PO SCH (18:35)
[2020-05-28] MEDS: ENOXAPARIN 40 MG/0.4 ML SQ SCH (20:00)
[2020-05-28] MEDS: MONTELUKAST 10 MG TABLET PO SCH (20:01)
[2020-05-28 20:27] VITALS: BP 107/55
[2020-05-29 02:24] VITALS: BP 120/62
[2020-05-29] MEDS: DOXYCYCLINE 100 MG in DEXTROSE 5% 250 ML IV SCH ×2 (02:25→13:51)
[2020-05-29] MEDS: CEFAZOLIN 2,000 MG in SODIUM CHLORIDE 0.9% 50 ML IV SCH ×3 (03:59→20:37)
[2020-05-29 05:29] LABS: HCT (SEDRATE) 32.2 % (34.6-47.8)
[2020-05-29 05:31] LABS: BASOPHILS % (AUTO) 1 % (0-1); EOSINOPHILS % (AUTO) 7 % (1-7); LYMPHOCYTES % (AUTO) 20 % (22-44); MEAN CORPUSCULAR HEMOGLOBIN 24.5 pg (27.0-34.8); MEAN PLATELET VOLUME 8.7 fL (7.4-10.4); MONOCYTES % (AUTO) 11 % (2-9); NEUTROPHILS % (AUTO) 62 % (42-75); PLATELET COUNT 110 x10^3/uL (130-400); RED CELL DISTRIBUTION WIDTH 20.1 % (9.6-15.2)
[2020-05-29 05:36] LABS: ALBUMIN 2.6 g/dL (3.4-5.0); ANION GAP 4 mmol/L (5-15); CALCIUM 8.3 mg/dL (8.5-10.1); CHLORIDE 108 mmol/L (98-107)
[2020-05-29 05:42] LABS: ALANINE AMINOTRANSFERASE 44 U/L (12-78); ALKALINE PHOSPHATASE 98 U/L (45-117); BILIRUBIN,TOTAL 1.5 mg/dL (0.2-1.0); C-REACTIVE PROTEIN, QUANT 0.18 mg/dL (0.02-0.49); CREATINE KINASE, TOTAL 75 U/L (26-192); CREATININE 0.66 mg/dL (0.55-1.02); D-DIMER 10.57 ug/mlFEU (0.00-0.52); INTERNATIONAL NORMALIZED RATIO 1.35 (0.93-1.1); PROTHROMBIN TIME 14.3 Seconds (9.6-11.5); TOTAL PROTEIN 5.5 g/dL (6.4-8.2)
[2020-05-29 05:47] LABS: MD NO
[2020-05-29] MEDS: ALBUTEROL HFA 90 MCG/SPRAY INH SCH ×4 (05:47→20:37)
[2020-05-29 07:39] VITALS: BP 120/72
[2020-05-29] MEDS: CETIRIZINE 10 MG TABLET PO SCH (08:27)
[2020-05-29] MEDS: SPIRONOLACTONE 25 MG TABLET PO SCH (08:27)
[2020-05-29] MEDS: POTASSIUM CHLORIDE 20 MEQ TAB.ER.PRT PO SCH ×2 (08:27→16:22)
[2020-05-29] MEDS: TIOTROPIUM BROMIDE 18 MCG/INH INH SCH (08:28)
[2020-05-29] MEDS: FLUTICASONE/VILANTEROL 100-25MCG/INH INH SCH (08:28)
[2020-05-29] MEDS: Ambrisentan 10 MG HOMEMEDPO SCH (08:28)
[2020-05-29] MEDS ORDERED: ENOXAPARIN 30 MG/0.3 ML SQ SCH (12:30)
[2020-05-29] MEDS: ENOXAPARIN 30 MG/0.3 ML SQ SCH (12:36)
[2020-05-29 15:23] VITALS: BP 106/69
[2020-05-29 19:09] VITALS: BP 96/53
[2020-05-29] MEDS: MONTELUKAST 10 MG TABLET PO SCH (20:37)
[2020-05-30] MEDS: ENOXAPARIN 30 MG/0.3 ML SQ SCH ×2 (00:27→11:04)
[2020-05-30] MEDS: DOXYCYCLINE 100 MG in DEXTROSE 5% 250 ML IV SCH (02:30)
[2020-05-30 03:37] VITALS: BP 98/52
[2020-05-30] MEDS: CEFAZOLIN 2,000 MG in SODIUM CHLORIDE 0.9% 50 ML IV SCH ×2 (03:46→11:04)
[2020-05-30] MEDS: ALBUTEROL HFA 90 MCG/SPRAY INH SCH ×2 (05:06→11:04)
[2020-05-30 05:12] LABS: HCT (SEDRATE) 28.5 % (34.6-47.8)
[2020-05-30 05:19] LABS: C-REACTIVE PROTEIN, QUANT 0.1 mg/dL (0.02-0.49)
[2020-05-30 07:15] VITALS: BP 110/67
[2020-05-30] MEDS ORDERED: POTASSIUM CHLORIDE 20 MEQ TAB.ER.PRT PO SCH (08:00)
[2020-05-30] MEDS ORDERED: FUROSEMIDE 20 MG TABLET PO SCH (09:00)
[2020-05-30] MEDS: FLUTICASONE/VILANTEROL 100-25MCG/INH INH SCH (09:21)
[2020-05-30] MEDS: TIOTROPIUM BROMIDE 18 MCG/INH INH SCH (09:22)
[2020-05-30] MEDS: SPIRONOLACTONE 25 MG TABLET PO SCH (09:23)
[2020-05-30] MEDS: CETIRIZINE 10 MG TABLET PO SCH (09:23)
[2020-05-30] MEDS: Ambrisentan 10 MG HOMEMEDPO SCH (09:24)
[2020-05-30] MEDS ORDERED: CEFA2PLA9 IV (09:38)
== END 2020-05-30 12:27 | disposition home or self-care (01) | DRG 871 ==
LOC: ED 15:39 → EDIP 17:06 → 4WST 20:48 → 4NE 05-26 13:22 → DCLOUNGE 05-30 12:19
PROVIDERS: ADMIT Hospitalist; ATTEND Hospitalist
PROC: 5A09357 Assistance with Respiratory Ventilation, Less than 24 Consecutive Hours, Continuous Positive Airway Pressure (ICD-10-PCS; principal; 2020-05-28)
PROC: 02HV33Z Insertion of Infusion Device into Superior Vena Cava, Percutaneous Approach (ICD-10-PCS; 2020-05-29)
PROC: B5181ZA Fluoroscopy of Superior Vena Cava using Low Osmolar Contrast, Guidance (ICD-10-PCS; 2020-05-29)
PROC: B548ZZA Ultrasonography of Superior Vena Cava, Guidance (ICD-10-PCS; 2020-05-29)
PROC: 5A09357 Assistance with Respiratory Ventilation, Less than 24 Consecutive Hours, Continuous Positive Airway Pressure (ICD-10-PCS; 2020-05-30)
DX: A41.2 Sepsis due to unspecified staphylococcus (principal); J15.9 Unspecified bacterial pneumonia; J96.01 Acute respiratory failure with hypoxia; J96.21 Acute and chronic respiratory failure with hypoxia; K85.90 Acute pancreatitis without necrosis or infection, unspecified; D84.9 Immunodeficiency, unspecified; E87.2 Acidosis; Z68.41 Body mass index [BMI] 40.0-44.9, adult; K76.6 Portal hypertension; R18.8 Other ascites; R65.20 Severe sepsis without septic shock; E87.6 Hypokalemia; K74.60 Unspecified cirrhosis of liver; D73.1 Hypersplenism; D69.59 Other secondary thrombocytopenia; B18.2 Chronic viral hepatitis C; D50.9 Iron deficiency anemia, unspecified; E03.9 Hypothyroidism, unspecified; E66.9 Obesity, unspecified; E78.5 Hyperlipidemia, unspecified; G47.33 Obstructive sleep apnea (adult) (pediatric); I10 Essential (primary) hypertension; I27.20 Pulmonary hypertension, unspecified; Z96.641 Presence of right artificial hip joint; J45.909 Unspecified asthma, uncomplicated; Z20.828 Contact with and (suspected) exposure to other viral communicable diseases; Z80.6 Family history of leukemia; Z82.3 Family history of stroke; Z82.5 Family history of asthma and other chronic lower respiratory diseases; Z83.3 Family history of diabetes mellitus; Z90.710 Acquired absence of both cervix and uterus; Z90.49 Acquired absence of other specified parts of digestive tract
CPT/HCPCS: 36415; 36573; 71045; 71275; 74177; 80048; 80053; 80202; 82550; 82728; 82962; 83605; 83615; 83690; 83880; 84145; 85025; 85049; 85379; 85384; 85610; 85651; 85730; 86140; 87040; 87077; 87186; 87400; 93005; 93306; 96365; 96375; G0378; J0690; J0696; J1100; J1650; J1940; J3370; J3480; J7060; Q9967; C1751; J7040; J7120; U0003

== ENCOUNTER 2020-06-12 15:33 | Outpatient (CLI) | payer BC ==
[~2020-06-12 15:33] MED LIST changes: +BENZ100C PO; +CEFA2PLA9 IV; +DEXA6TAB6 PO; +DOXY100T23 PO
[2020-06-12 18:27] LABS: CELLS COUNTED 75
== END 2020-06-12 23:59 | disposition home or self-care (01) ==
LOC: RAD 15:33
PROVIDERS: ATTEND Internal Medicine Infectious Disease
DX: R18.8 Other ascites (principal); K74.60 Unspecified cirrhosis of liver; K76.6 Portal hypertension; R16.1 Splenomegaly, not elsewhere classified; Z90.49 Acquired absence of other specified parts of digestive tract
CPT/HCPCS: 49083; 76700; 82042; 82150; 82570; 82945; 83615; 83986; 84157; 84560; 87070; 87075; 87102; 87116; 87205; 87206; 88112; 88305; 89050; 89051

== ENCOUNTER 2020-06-17 12:23 | Outpatient (CLI) | payer BC ==
[2020-06-17] MEDS ORDERED: LIDOCAINE 1%, 10ML ONE (12:45)
== END 2020-06-17 23:59 | disposition home or self-care (01) ==
LOC: RAD 12:23
PROVIDERS: ATTEND Internal Medicine Infectious Disease
DX: R18.8 Other ascites (principal); K74.60 Unspecified cirrhosis of liver; R14.0 Abdominal distension (gaseous)
CPT/HCPCS: 49083; 82150; 84157; 87070; 87205; 89051; J3490

== ENCOUNTER 2020-06-21 09:00 | Outpatient (CLI) | payer BC ==
[~2020-06-21 09:00] MED LIST changes: +LIDOCAINE 1%, 10ML ONE; -OXYC5TAB3 PO; +OXYC5TAB98 PO
[2020-06-21] MEDS ORDERED: ALBUMIN HUMAN 25%, 25GM/100ML ONE ×2 (09:16→10:29)
== END 2020-06-21 23:59 | disposition home or self-care (01) ==
LOC: RAD 09:00
PROVIDERS: ATTEND Internal Medicine Cardiovascular Disease
DX: R18.8 Other ascites (principal); K74.60 Unspecified cirrhosis of liver; F14.90 Cocaine use, unspecified, uncomplicated; Z79.899 Other long term (current) drug therapy; Z91.048 Other nonmedicinal substance allergy status; Z72.89 Other problems related to lifestyle; Z82.49 Family history of ischemic heart disease and other diseases of the circulatory system
CPT/HCPCS: 49083; J3490; P9047

== ENCOUNTER → 2020-06-28 | Outpatient (CLI) | payer BC ==
[~2020-06-28] MED LIST changes: +ALBUMIN HUMAN 25%, 25GM/100ML ONE
== END | disposition home or self-care (01) ==
LOC: RAD 13:28
PROVIDERS: ATTEND Internal Medicine Gastroenterology
DX: R18.8 Other ascites (principal); K74.60 Unspecified cirrhosis of liver; K75.81 Nonalcoholic steatohepatitis (NASH); F14.90 Cocaine use, unspecified, uncomplicated; Z91.048 Other nonmedicinal substance allergy status; Z72.89 Other problems related to lifestyle; Z82.49 Family history of ischemic heart disease and other diseases of the circulatory system; Z82.5 Family history of asthma and other chronic lower respiratory diseases
CPT/HCPCS: 49083; J3490; P9047

== ENCOUNTER 2020-07-05 09:22 | Outpatient (CLI) | payer BC ==
[~2020-07-05 09:22] MED LIST changes: -ALBUMIN HUMAN 25%, 25GM/100ML ONE; -LIDOCAINE 1%, 10ML ONE; +MONT10TA17 PO; -MONT10TA96 PO
[2020-07-05] MEDS ORDERED: LIDOCAINE 1%, 10ML ONE (09:32)
== END 2020-07-05 23:59 | disposition home or self-care (01) ==
LOC: RAD 09:22
PROVIDERS: ATTEND Internal Medicine Gastroenterology
DX: K74.60 Unspecified cirrhosis of liver (principal); F14.90 Cocaine use, unspecified, uncomplicated; Z79.899 Other long term (current) drug therapy; Z72.89 Other problems related to lifestyle; Z88.8 Allergy status to other drugs, medicaments and biological substances; Z82.49 Family history of ischemic heart disease and other diseases of the circulatory system
CPT/HCPCS: 49083; J3490

== ENCOUNTER 2020-07-12 11:34 | Outpatient (CLI) | payer BC ==
[2020-07-12] MEDS ORDERED: LIDOCAINE 1%, 10ML ONE (11:50)
== END 2020-07-12 23:59 | disposition home or self-care (01) ==
LOC: RAD 11:34
PROVIDERS: ATTEND Internal Medicine Gastroenterology
DX: R18.8 Other ascites (principal); K74.60 Unspecified cirrhosis of liver; F14.90 Cocaine use, unspecified, uncomplicated; Z79.899 Other long term (current) drug therapy; Z91.048 Other nonmedicinal substance allergy status; Z72.89 Other problems related to lifestyle
CPT/HCPCS: 49083; J3490

== ENCOUNTER 2020-07-31 09:25 | Outpatient (CLI) | payer BC ==
[2020-07-31] MEDS ORDERED: LIDOCAINE 1%, 10ML ONE (09:45)
== END 2020-07-31 23:59 | disposition home or self-care (01) ==
LOC: RAD 09:25
PROVIDERS: ATTEND Internal Medicine Gastroenterology
DX: R18.8 Other ascites (principal); K74.60 Unspecified cirrhosis of liver; F14.90 Cocaine use, unspecified, uncomplicated; Z79.899 Other long term (current) drug therapy; Z91.048 Other nonmedicinal substance allergy status; Z72.89 Other problems related to lifestyle
CPT/HCPCS: 49083; J3490

== ENCOUNTER → 2020-08-14 | Outpatient (CLI) | payer BC ==
[~2020-08-14] MED LIST changes: +LIDOCAINE 1%, 10ML ONE
== END | disposition home or self-care (01) ==
LOC: RAD 09:10
PROVIDERS: ATTEND Internal Medicine Gastroenterology
DX: K74.60 Unspecified cirrhosis of liver (principal)
CPT/HCPCS: 49083; J3490

== ENCOUNTER 2020-08-23 13:55 | Outpatient (CLI) | payer BC ==
[~2020-08-23 13:55] MED LIST changes: -LIDOCAINE 1%, 10ML ONE
[2020-08-23] MEDS ORDERED: LIDOCAINE 1%, 10ML ONE (14:04)
[2020-08-23] MEDS ORDERED: ALBUMIN HUMAN 25%, 25GM/100ML ONE (16:58)
== END 2020-08-23 23:59 | disposition home or self-care (01) ==
LOC: RAD 13:55
PROVIDERS: ATTEND Internal Medicine Gastroenterology
DX: R18.8 Other ascites (principal); K74.60 Unspecified cirrhosis of liver
CPT/HCPCS: 49083; J3490; P9047

== ENCOUNTER 2020-08-30 09:31 | Outpatient (CLI) | payer BC ==
[2020-08-30] MEDS ORDERED: LIDOCAINE 1%, 10ML ONE (09:39)
== END 2020-08-30 23:59 | disposition home or self-care (01) ==
LOC: RAD 09:31
PROVIDERS: ATTEND Internal Medicine Gastroenterology
DX: R18.8 Other ascites (principal); K74.60 Unspecified cirrhosis of liver
CPT/HCPCS: 49083; J3490

== ENCOUNTER 2020-09-03 06:13 | Day surgery (SDC) | payer BC ==
[~2020-09-03] VITALS: Ht 162.6 cm; Wt 93.0 kg
[2020-09-03 06:41] VITALS: BP 125/70
[2020-09-03 08:15] LABS: INTERNATIONAL NORMALIZED RATIO 1.36 (0.93-1.1); PROTHROMBIN TIME 14.5 Seconds (9.6-11.5)
[2020-09-03] MEDS ORDERED: LIDOCAINE 1%, 10ML ONE (08:33)
[2020-09-03] MEDS ORDERED: NALOXONE 1 MG/ML, 2ML ONE (08:46)
[2020-09-03] MEDS ORDERED: MIDAZOLAM 1 MG/ML, 5ML ONE (08:46)
[2020-09-03] MEDS ORDERED: FENTANYL PF 100 MCG/2ML ONE ×2 (08:46)
[2020-09-03] MEDS ORDERED: FLUMAZENIL 0.1 MG/1 ML, 5ML ONE (08:46)
[2020-09-03] MEDS ORDERED: VISIPAQUE 270 MG/ML, 50ML BOTTLE ONE (10:06)
== END 2020-09-03 11:10 | disposition home or self-care (01) ==
LOC: OUT 06:13
PROVIDERS: ATTEND Internal Medicine Gastroenterology
DX: K74.60 Unspecified cirrhosis of liver (principal); R18.8 Other ascites; I27.20 Pulmonary hypertension, unspecified; J45.909 Unspecified asthma, uncomplicated; G47.30 Sleep apnea, unspecified; E03.9 Hypothyroidism, unspecified; E87.6 Hypokalemia; E66.9 Obesity, unspecified; Z68.35 Body mass index [BMI] 35.0-35.9, adult; Z79.890 Hormone replacement therapy; Z79.899 Other long term (current) drug therapy; Z90.49 Acquired absence of other specified parts of digestive tract; Z98.890 Other specified postprocedural states
CPT/HCPCS: 36011; 36415; 37200; 75970; 76937; 85610; 88307; 88313; 99156; 99157; C1769; C1894; J2250; J3010; Q9966; J2310

== ENCOUNTER 2020-09-06 08:40 | Outpatient (CLI) | payer BC ==
[~2020-09-06 08:40] MED LIST changes: +LIDOCAINE 1%, 10ML ONE
[2020-09-06] MEDS ORDERED: ALBUMIN HUMAN 25%, 25GM/100ML ONE (10:26)
[2021-02-20] MEDS ORDERED: TIOT4MIS5 PO (11:29)
[2021-02-20] MEDS ORDERED: ZINC50CA PO (11:29)
== END 2020-09-06 23:59 | disposition home or self-care (01) ==
LOC: RAD 08:40
PROVIDERS: ATTEND Internal Medicine Gastroenterology
DX: K74.60 Unspecified cirrhosis of liver (principal)
CPT/HCPCS: 49083; J3490; P9047

== ENCOUNTER 2020-09-12 11:47 | Outpatient (CLI) | payer BC ==
[2020-09-12] MEDS ORDERED: LIDOCAINE 1%, 10ML ONE (11:50)
== END 2020-09-12 23:59 | disposition home or self-care (01) ==
LOC: RAD 11:47
PROVIDERS: ATTEND Internal Medicine Gastroenterology
DX: R18.8 Other ascites (principal); K74.60 Unspecified cirrhosis of liver
CPT/HCPCS: 49083; J3490

== ENCOUNTER → 2020-09-24 | Outpatient (CLI) | payer BC ==
[~2020-09-24] MED LIST changes: +ALBUMIN HUMAN 25%, 25GM/100ML ONE; +ASCO500C2 PO; +BUME1TAB21 PO; +CETI-158 PO; +VITA0.4T18 PO; +WHEA1POW8 PO
== END | disposition home or self-care (01) ==
LOC: RAD 09:04
PROVIDERS: ATTEND Internal Medicine Gastroenterology
DX: K74.60 Unspecified cirrhosis of liver (principal)
CPT/HCPCS: 49083; J3490; P9047

== ENCOUNTER 2020-09-25 08:25 | Day surgery (SDC) | payer BC ==
[~2020-09-25] VITALS: Ht 162.6 cm; Wt 91.3 kg
[~2020-09-25 08:25] MED LIST changes: -ALBUMIN HUMAN 25%, 25GM/100ML ONE; -ASCO500C2 PO; -BUME1TAB21 PO; -CETI-158 PO; -LIDOCAINE 1%, 10ML ONE; -VITA0.4T18 PO; -WHEA1POW8 PO
[2020-09-25 08:51] VITALS: BP 109/61
[2020-09-25] MEDS ORDERED: CETI-158 PO (09:13)
[2020-09-25] MEDS ORDERED: WHEA1POW8 PO (09:13)
[2020-09-25] MEDS ORDERED: BUME1TAB21 PO (09:13)
[2020-09-25] MEDS ORDERED: ASCO500C2 PO (09:13)
[2020-09-25] MEDS ORDERED: VITA0.4T18 PO (09:13)
[2020-09-25] MEDS ORDERED: DIPHENHYDRAMINE 50 MG/ML, 1ML ONE (09:26)
[2020-09-25 09:27] LABS: BASOPHILS % (AUTO) 1 % (0-1); EOSINOPHILS % (AUTO) 1 % (1-7); LYMPHOCYTES % (AUTO) 11 % (22-44); MEAN CORPUSCULAR HEMOGLOBIN 24.9 pg (27.0-34.8); MEAN CORPUSCULAR HGB CONC 32.1 g/dL (32.4-35.8); MEAN PLATELET VOLUME 8.9 fL (7.4-10.4); MONOCYTES % (AUTO) 15 % (2-9); NEUTROPHILS % (AUTO) 72 % (42-75); PLATELET COUNT 131 x10^3/uL (130-400); RED BLOOD COUNT 4.15 x10^6/uL (3.82-5.3); RED CELL DISTRIBUTION WIDTH 22.3 % (9.6-15.2)
[2020-09-25 09:35] LABS: ANION GAP 6 mmol/L (5-15); CALCIUM 7.7 mg/dL (8.5-10.1); CHLORIDE 106 mmol/L (98-107); CREATININE 0.59 mg/dL (0.55-1.02)
[2020-09-25] MEDS ORDERED: FENTANYL PF 100 MCG/2ML ONE (10:24)
[2020-09-25] MEDS ORDERED: LIDOCAINE-MPF 1%, 5ML ONE (10:24)
[2020-09-25] MEDS ORDERED: MIDAZOLAM 1 MG/ML, 2ML ONE (10:24)
[2020-09-25 10:33] LABS: MD MORPH REVIEW ONLY
[2020-09-25 10:37] LABS: ANISOCYTOSIS 1+; HYPOCHROMIA 1+; MICROCYTOSIS 1+; POLYCHROMASIA 1+
[2020-09-25 10:38] LABS: <PLATELET ESTIMATE> ADEQUATE; <PLT MORPHOLOGY> NORMAL PLT MORPH; OVALOCYTES 1+
== END 2020-09-25 12:31 | disposition home or self-care (01) ==
LOC: CACL 08:25
PROVIDERS: ATTEND Internal Medicine Cardiovascular Disease
DX: I27.20 Pulmonary hypertension, unspecified (principal); I10 Essential (primary) hypertension; E78.2 Mixed hyperlipidemia; J45.909 Unspecified asthma, uncomplicated; G47.30 Sleep apnea, unspecified; Z79.899 Other long term (current) drug therapy; Z91.048 Other nonmedicinal substance allergy status
CPT/HCPCS: 36415; 80048; 85025; 93451; 99156; C1894; J1200; J2250; J3010

== ENCOUNTER → 2020-09-30 | Outpatient (CLI) | payer BC ==
[~2020-09-30] MED LIST changes: +ASCO500C2 PO; +BUME1TAB21 PO; +CETI-158 PO; +LIDOCAINE 1%, 10ML ONE; +VITA0.4T18 PO; +WHEA1POW8 PO
== END | disposition home or self-care (01) ==
LOC: RAD 11:36
PROVIDERS: ATTEND Internal Medicine Gastroenterology
DX: K74.60 Unspecified cirrhosis of liver (principal)
CPT/HCPCS: 49083; J3490

== ENCOUNTER → 2020-10-07 | Outpatient (CLI) | payer BC ==
[~2020-10-07] MED LIST changes: +ALBUMIN HUMAN 25%, 25GM/100ML ONE
== END | disposition home or self-care (01) ==
LOC: RAD 09:14
PROVIDERS: ATTEND Internal Medicine Gastroenterology
DX: K74.60 Unspecified cirrhosis of liver (principal)
CPT/HCPCS: 49083; J3490; P9047

== ENCOUNTER → 2020-10-14 | Outpatient (CLI) | payer BC | END | disposition home or self-care (01) | LOC: RAD 09:25 | PROVIDERS: ATTEND Internal Medicine Gastroenterology | DX: R18.8 Other ascites (principal); K74.60 Unspecified cirrhosis of liver | CPT/HCPCS: 49083; J3490; P9047 ==

== ENCOUNTER → 2020-10-22 | Outpatient (CLI) | payer BC | END | disposition home or self-care (01) | LOC: RAD 13:25 | PROVIDERS: ATTEND Internal Medicine Cardiovascular Disease | DX: R18.8 Other ascites (principal); K74.60 Unspecified cirrhosis of liver | CPT/HCPCS: 49083; J3490; P9047 ==

== ENCOUNTER → 2020-11-01 | Outpatient (CLI) | payer BC | END | disposition home or self-care (01) | LOC: RAD 11:37 | PROVIDERS: ATTEND Family Medicine | DX: R18.8 Other ascites (principal); K74.60 Unspecified cirrhosis of liver | CPT/HCPCS: 49083; J3490; P9047 ==

== ENCOUNTER → 2020-11-18 | Outpatient (CLI) | payer BC ==
[~2020-11-18] MED LIST changes: -ALBUMIN HUMAN 25%, 25GM/100ML ONE; -LIDOCAINE 1%, 10ML ONE; +LIDOCAINE-MPF 1%, 5ML ONE
== END | disposition home or self-care (01) ==
LOC: RAD 08:50
PROVIDERS: ATTEND Family Medicine
DX: K74.60 Unspecified cirrhosis of liver (principal)
CPT/HCPCS: 49083

== ENCOUNTER 2020-12-14 22:01 | Emergency (ER) | payer BC ==
[~2020-12-14] VITALS: Ht 162.6 cm; Wt 83.1 kg
[~2020-12-14 22:01] MED LIST changes: -LIDOCAINE-MPF 1%, 5ML ONE
--- NOTE | 2020-12-14 23:27 | NUR ---
c/o fever x 1 day. no meds at home. reports fatigue also for a day. denies any pain. occasional dry cough observed.
[2020-12-14] MEDS ORDERED: SODIUM CHLORIDE FLUSH 10ML SYR IVF ONE (23:30)
[2020-12-14] MEDS ORDERED: IBUPROFEN 600 MG TABLET PO ONE (23:30)
[2020-12-14] MEDS ORDERED: SODIUM CHLORIDE 0.9% 1,000ML IVBOLUS ONE (23:30)
[2020-12-15] MEDS ORDERED: ACETAMINOPHEN 325 MG TABLET PO ONE
[2020-12-15 00:08] LABS: BASOPHILS % (AUTO) 1 % (0-1); EOSINOPHILS % (AUTO) 0 % (1-7); LYMPHOCYTES % (AUTO) 6 % (22-44); MEAN CORPUSCULAR HEMOGLOBIN 24.5 pg (27.0-34.8); MEAN CORPUSCULAR HGB CONC 31.4 g/dL (32.4-35.8); MEAN PLATELET VOLUME 9.2 fL (7.4-10.4); MONOCYTES % (AUTO) 9 % (2-9); NEUTROPHILS % (AUTO) 85 % (42-75); PLATELET COUNT 111 x10^3/uL (130-400); RED BLOOD COUNT 4.58 x10^6/uL (3.82-5.3); RED CELL DISTRIBUTION WIDTH 21.3 % (9.6-15.2)
--- NOTE | 2020-12-15 00:09 | NUR ---
PT IN US NOW
[2020-12-15 00:13] LABS: ALANINE AMINOTRANSFERASE 32 U/L (12-78); ALBUMIN 3.2 g/dL (3.4-5.0); ANION GAP 8 mmol/L (5-15); CALCIUM 8.7 mg/dL (8.5-10.1); CHLORIDE 104 mmol/L (98-107); CREATININE 0.87 mg/dL (0.55-1.02)
[2020-12-15 00:16] LABS: ALKALINE PHOSPHATASE 131 U/L (45-117); BILIRUBIN,TOTAL 3.7 mg/dL (0.2-1.0); TOTAL PROTEIN 6.8 g/dL (6.4-8.2)
[2020-12-15] MEDS ORDERED: ACETAMINOPHEN 325 MG TABLET ONE (00:22)
[2020-12-15 00:29] LABS: MICROSCOPIC INDICATED
[2020-12-15] MEDS ORDERED: AZITHROMYCIN 500 MG in SODIUM CHLORIDE 0.9% 250 ML IV ONE (01:30)
[2020-12-15] MEDS ORDERED: CEFTRIAXONE 1,000 MG in DEXTROSE 5% 50 ML IVPB ONE (01:30)
--- NOTE | 2020-12-15 03:09 | NUR ---
Note malia in EDM - 12/15/20 at 0310 by ELI PT RESTING ON GURNEY WITH FAMILY AT BEDSIDE. PT REPORTS FEELING MUCH BETTER AFTER TYLENOL AND FLUIDS. PT TO BE DISCHARGED AFTER IV ABX.
--- NOTE | 2020-12-15 03:11 | NUR ---
PT RESTING ON GURNEY WITH FAMILY AT BEDSIDE. PT REPORTS FEELING MUCH BETTER AFTER TYLENOL AND FLUIDS. PT TO BE DISCHARGED AFTER IV ABX.
[2020-12-15 03:20] VITALS: BP 101/57
[2020-12-16] MEDS ORDERED: MULT-717 PO (01:22)
[2020-12-16] MEDS ORDERED: CALC-112 PO (01:22)
[2020-12-16] MEDS ORDERED: OMEP-110 PO (01:22)
[2020-12-16] MEDS ORDERED: FERR324T5 PO (01:22)
== END 2020-12-15 03:57 | disposition home or self-care (01) ==
LOC: ED 23:00
DX: J15.9 Unspecified bacterial pneumonia (principal); N30.00 Acute cystitis without hematuria; I27.20 Pulmonary hypertension, unspecified; Z90.49 Acquired absence of other specified parts of digestive tract
CPT/HCPCS: 36415; 71045; 80053; 81001; 83605; 84145; 85025; 87040; 87077; 87086; 87186; 93971; 96365; 96367; 99285; J0456; J0696; J7030; J7050

== ENCOUNTER 2020-12-15 22:21 | Inpatient (IN) | payer BC ==
[~2020-12-15] VITALS: Ht 162.6 cm; Wt 86.3 kg
[2020-12-15] MEDS ORDERED: CEFTRIAXONE 1,000 MG in DEXTROSE 5% 50 ML IVPB ONE (23:00)
[2020-12-15 23:04] LABS: BASOPHILS % (AUTO) 1 % (0-1); EOSINOPHILS % (AUTO) 3 % (1-7); LYMPHOCYTES % (AUTO) 13 % (22-44); MEAN CORPUSCULAR HEMOGLOBIN 24.5 pg (27.0-34.8); MEAN CORPUSCULAR HGB CONC 31.8 g/dL (32.4-35.8); MONOCYTES % (AUTO) 15 % (2-9); NEUTROPHILS % (AUTO) 67 % (42-75); PLATELET COUNT 102 x10^3/uL (130-400); RED BLOOD COUNT 4.24 x10^6/uL (3.82-5.3); RED CELL DISTRIBUTION WIDTH 21.5 % (9.6-15.2)
[2020-12-15 23:14] LABS: ALBUMIN 2.9 g/dL (3.4-5.0); ANION GAP 5 mmol/L (5-15); CALCIUM 8.4 mg/dL (8.5-10.1); CHLORIDE 106 mmol/L (98-107); CREATININE 0.82 mg/dL (0.55-1.02)
[2020-12-16] MEDS ORDERED: FERR324T5 PO (01:22)
[2020-12-16] MEDS ORDERED: OMEP-110 PO (01:22)
[2020-12-16] MEDS ORDERED: MULT-717 PO (01:22)
[2020-12-16] MEDS ORDERED: CALC-112 PO (01:22)
--- NOTE | 2020-12-16 01:22 | NUR ---
PT TRANSFERED TO HOSPITAL BED
[2020-12-16] MEDS ORDERED: ENALAPRILAT 1.25 MG/ML, 2ML IVPush PRN (02:30)
[2020-12-16] MEDS ORDERED: IBUPROFEN 600 MG TABLET PO PRN (02:30)
[2020-12-16] MEDS ORDERED: ONDANSETRON 2MG/ML, 2ML IVPush PRN (02:30)
[2020-12-16] MEDS ORDERED: CYCLOBENZAPRINE 10 MG TABLET PO PRN (02:30)
[2020-12-16] MEDS ORDERED: GUAIFENESIN/DM 200-20MG, 10ML UDC PO PRN (02:30)
[2020-12-16] MEDS ORDERED: ALBUTEROL SULFATE 2.5 MG/3 ML NPPB PRN (02:30)
[2020-12-16] MEDS ORDERED: VANCOMYCIN PER PHARMACY MC PRN (02:30)
[2020-12-16] MEDS ORDERED: DOCUSATE 100 MG CAPSULE PO PRN (02:30)
[2020-12-16] MEDS ORDERED: morphine SULFATE 10 MG/ML, 1ML IVPush PRN (02:30)
[2020-12-16] MEDS ORDERED: TEMAZEPAM 15 MG CAPSULE PO PRN (02:30)
[2020-12-16] MEDS ORDERED: OXYcodone IR 5MG TABLET PO PRN (02:30)
--- NOTE | 2020-12-16 02:35 | NUR ---
report to sherly rea
[2020-12-16] MEDS ORDERED: PHARMACOKINETIC CONSULTATION MC ONE (03:30)
[2020-12-16] MEDS ORDERED: VANCOMYCIN 2,100 MG in SODIUM CHLORIDE 0.9% 500 ML IV ONE (03:30)
[2020-12-16] MEDS ORDERED: PHARMACOKINETIC MONITORING MC PRN (03:30)
[2020-12-16] MEDS: ENOXAPARIN 40 MG/0.4 ML SQ SCH (03:50)
[2020-12-16] MEDS: VITAMIN E 400 UNITS CAPSULE PO SCH ×4 (06:23→22:38)
[2020-12-16 06:50] VITALS: BP 123/60
[2020-12-16] MEDS: ALBUTEROL/IPRATROPIUM 2.5MG/0.5MG, 3 ML NPPB SCH ×4 (07:15→22:43)
[2020-12-16] MEDS: BUDESONIDE 0.5 MG/2 ML INHA INH SCH ×2 (07:15→22:43)
[2020-12-16] MEDS: ASCORBIC ACID 500 MG TABLET PO SCH (10:24)
[2020-12-16] MEDS: SPIRONOLACTONE 25 MG TABLET PO SCH (10:24)
[2020-12-16] MEDS: CALCIUM/VITAMIN D3 250-125 TABLET PO SCH (10:24)
[2020-12-16] MEDS: LEVOTHYROXINE 200 MCG TABLET PO SCH (10:24)
[2020-12-16] MEDS: OMEPRAZOLE 20 MG CAPSULE.DR PO SCH (10:25)
[2020-12-16] MEDS: MULTIVITAMIN 1 TABLET PO SCH (10:25)
[2020-12-16] MEDS: CETIRIZINE 10 MG TABLET PO SCH (10:25)
[2020-12-16] MEDS: BUMETANIDE 1 MG TABLET PO SCH (10:25)
[2020-12-16] MEDS: POTASSIUM CHLORIDE 20 MEQ TAB.ER.PRT PO SCH ×2 (10:26→22:38)
[2020-12-16] MEDS: TEMPLATE NON-FORMULARY MED. (Ambrisentan (Letairis**) 10 MG) HOMEMEDPO SCH (10:27)
[2020-12-16] MEDS: OMEGA-3/FISH OIL CAPSULE PO SCH (10:40)
[2020-12-16] MEDS: CALCIUM POLYCARBOPHIL 625 MG TABLET PO SCH (10:40)
[2020-12-16 13:35] VITALS: BP 103/60
[2020-12-16] MEDS: VANCOMYCIN 1,600 MG in SODIUM CHLORIDE 0.9% 250 ML IV SCH (16:11)
[2020-12-16] MEDS ORDERED: ACETAMINOPHEN 325 MG TABLET PO PRN (17:00)
[2020-12-16 18:50] VITALS: BP 102/54
[2020-12-16] MEDS: MONTELUKAST 10 MG TABLET PO SCH (22:38)
[2020-12-16] MEDS: ATORVASTATIN 20 MG TABLET PO SCH (22:38)
[2020-12-16] MEDS: AMLODIPINE 2.5 MG TABLET PO SCH (22:38)
[2020-12-16] MEDS: FERROUS SULFATE 325 MG TABLET PO SCH (22:39)
[2020-12-17 00:29] VITALS: BP 105/55
[2020-12-17] MEDS: VANCOMYCIN 1,600 MG in SODIUM CHLORIDE 0.9% 250 ML IV SCH ×2 (04:26→16:21)
[2020-12-17] MEDS: ENOXAPARIN 40 MG/0.4 ML SQ SCH ×2 (04:31→06:32)
[2020-12-17 04:57] LABS: BASOPHILS % (AUTO) 2 % (0-1); EOSINOPHILS % (AUTO) 6 % (1-7); LYMPHOCYTES % (AUTO) 18 % (22-44); MEAN CORPUSCULAR HEMOGLOBIN 24.8 pg (27.0-34.8); MEAN CORPUSCULAR HGB CONC 31.8 g/dL (32.4-35.8); MEAN PLATELET VOLUME 8.8 fL (7.4-10.4); MONOCYTES % (AUTO) 14 % (2-9); NEUTROPHILS % (AUTO) 61 % (42-75); PLATELET COUNT 93 x10^3/uL (130-400); RED BLOOD COUNT 3.73 x10^6/uL (3.82-5.3); RED CELL DISTRIBUTION WIDTH 21.3 % (9.6-15.2)
[2020-12-17 05:13] LABS: ANION GAP 4 mmol/L (5-15); CALCIUM 8.2 mg/dL (8.5-10.1); CHLORIDE 108 mmol/L (98-107)
[2020-12-17 05:15] LABS: CREATININE 0.58 mg/dL (0.55-1.02)
[2020-12-17] MEDS: VITAMIN E 400 UNITS CAPSULE PO SCH ×4 (06:31→23:18)
[2020-12-17] MEDS: ALBUTEROL/IPRATROPIUM 2.5MG/0.5MG, 3 ML NPPB SCH ×2 (06:32→08:00)
[2020-12-17 07:16] VITALS: BP 107/54
[2020-12-17] MEDS: BUDESONIDE 0.5 MG/2 ML INHA INH SCH (08:00)
[2020-12-17] MEDS: TEMPLATE NON-FORMULARY MED. (Ambrisentan (Letairis**) 10 MG) HOMEMEDPO SCH (09:00)
[2020-12-17] MEDS ORDERED: BUDESONIDE 0.5 MG/2 ML INHA INH PRN (09:00)
[2020-12-17] MEDS: LEVOTHYROXINE 200 MCG TABLET PO SCH (09:00)
[2020-12-17] MEDS: MULTIVITAMIN 1 TABLET PO SCH ×2 (09:00→10:09)
[2020-12-17] MEDS ORDERED: LEVOTHYROXINE 100 MCG TABLET ONE (09:07)
[2020-12-17] MEDS: ASCORBIC ACID 500 MG TABLET PO SCH (09:14)
[2020-12-17] MEDS: OMEPRAZOLE 20 MG CAPSULE.DR PO SCH (09:14)
[2020-12-17] MEDS: CETIRIZINE 10 MG TABLET PO SCH (09:16)
[2020-12-17] MEDS: CALCIUM/VITAMIN D3 250-125 TABLET PO SCH (09:16)
[2020-12-17] MEDS: BUMETANIDE 1 MG TABLET PO SCH (09:16)
[2020-12-17] MEDS: SPIRONOLACTONE 25 MG TABLET PO SCH (09:16)
[2020-12-17] MEDS: POTASSIUM CHLORIDE 20 MEQ TAB.ER.PRT PO SCH ×2 (09:17→23:18)
[2020-12-17] MEDS: OMEGA-3/FISH OIL CAPSULE PO SCH (09:40)
[2020-12-17] MEDS: CALCIUM POLYCARBOPHIL 625 MG TABLET PO SCH (10:09)
[2020-12-17 12:40] VITALS: BP 106/63
[2020-12-17] MEDS: ATORVASTATIN 20 MG TABLET PO SCH (23:18)
[2020-12-17] MEDS: FERROUS SULFATE 325 MG TABLET PO SCH (23:18)
[2020-12-17] MEDS: MONTELUKAST 10 MG TABLET PO SCH (23:18)
[2020-12-17] MEDS: AMLODIPINE 2.5 MG TABLET PO SCH (23:18)
[2020-12-18 02:37] VITALS: BP 110/58
[2020-12-18] MEDS: VITAMIN E 400 UNITS CAPSULE PO SCH ×4 (07:26→20:54)
[2020-12-18] MEDS: ENOXAPARIN 40 MG/0.4 ML SQ SCH (07:27)
[2020-12-18 07:33] VITALS: BP 112/62
[2020-12-18] MEDS: CALCIUM POLYCARBOPHIL 625 MG TABLET PO SCH (09:00)
[2020-12-18] MEDS: CALCIUM/VITAMIN D3 250-125 TABLET PO SCH (09:00)
[2020-12-18] MEDS: TEMPLATE NON-FORMULARY MED. (Ambrisentan (Letairis**) 10 MG) HOMEMEDPO SCH (09:00)
[2020-12-18] MEDS: LEVOTHYROXINE 200 MCG TABLET PO SCH (09:02)
[2020-12-18] MEDS: CETIRIZINE 10 MG TABLET PO SCH (09:02)
[2020-12-18] MEDS: POTASSIUM CHLORIDE 20 MEQ TAB.ER.PRT PO SCH ×2 (09:02→20:54)
[2020-12-18] MEDS: SPIRONOLACTONE 25 MG TABLET PO SCH (09:02)
[2020-12-18] MEDS: MULTIVITAMIN 1 TABLET PO SCH (09:02)
[2020-12-18] MEDS: ASCORBIC ACID 500 MG TABLET PO SCH (09:02)
[2020-12-18] MEDS: OMEPRAZOLE 20 MG CAPSULE.DR PO SCH (09:03)
[2020-12-18] MEDS: OMEGA-3/FISH OIL CAPSULE PO SCH (09:03)
[2020-12-18] MEDS: VANCOMYCIN 1,600 MG in SODIUM CHLORIDE 0.9% 250 ML IV SCH (10:00)
[2020-12-18 10:21] LABS: HCT (SEDRATE) 29.6 % (34.6-47.8)
[2020-12-18] MEDS: BUMETANIDE 1 MG TABLET PO SCH (11:05)
[2020-12-18 12:01] VITALS: BP 112/62
[2020-12-18 19:02] VITALS: BP 97/53
[2020-12-18] MEDS: FERROUS SULFATE 325 MG TABLET PO SCH (20:54)
[2020-12-18] MEDS: MONTELUKAST 10 MG TABLET PO SCH (20:54)
[2020-12-18] MEDS: ATORVASTATIN 20 MG TABLET PO SCH (20:54)
[2020-12-18] MEDS: AMLODIPINE 2.5 MG TABLET PO SCH (20:54)
[2020-12-19 00:38] VITALS: BP 106/51
[2020-12-19] MEDS: VANCOMYCIN 1,600 MG in SODIUM CHLORIDE 0.9% 250 ML IV SCH (04:06)
[2020-12-19 05:16] LABS: BASOPHILS % (AUTO) 2 % (0-1); EOSINOPHILS % (AUTO) 6 % (1-7); LYMPHOCYTES % (AUTO) 20 % (22-44); MEAN CORPUSCULAR HGB CONC 32.3 g/dL (32.4-35.8); MEAN PLATELET VOLUME 9.5 fL (7.4-10.4); MONOCYTES % (AUTO) 17 % (2-9); NEUTROPHILS % (AUTO) 55 % (42-75); PLATELET COUNT 96 x10^3/uL (130-400); RED BLOOD COUNT 3.76 x10^6/uL (3.82-5.3); RED CELL DISTRIBUTION WIDTH 21.2 % (9.6-15.2)
[2020-12-19 05:35] LABS: ANION GAP 7 mmol/L (5-15); CHLORIDE 107 mmol/L (98-107)
[2020-12-19 05:38] LABS: CREATININE 0.67 mg/dL (0.55-1.02)
[2020-12-19] MEDS: VITAMIN E 400 UNITS CAPSULE PO SCH ×4 (05:49→20:25)
[2020-12-19] MEDS: ENOXAPARIN 40 MG/0.4 ML SQ SCH (05:50)
[2020-12-19 07:49] VITALS: BP 118/63
[2020-12-19] MEDS: LEVOTHYROXINE 200 MCG TABLET PO SCH (09:00)
[2020-12-19] MEDS: CALCIUM/VITAMIN D3 250-125 TABLET PO SCH (09:00)
[2020-12-19] MEDS: CALCIUM POLYCARBOPHIL 625 MG TABLET PO SCH (09:00)
[2020-12-19] MEDS: TEMPLATE NON-FORMULARY MED. (Ambrisentan (Letairis**) 10 MG) HOMEMEDPO SCH (09:00)
[2020-12-19] MEDS: BUMETANIDE 1 MG TABLET PO SCH (09:43)
[2020-12-19] MEDS: MULTIVITAMIN 1 TABLET PO SCH (09:44)
[2020-12-19] MEDS: CETIRIZINE 10 MG TABLET PO SCH (09:44)
[2020-12-19] MEDS: OMEGA-3/FISH OIL CAPSULE PO SCH (09:44)
[2020-12-19] MEDS: POTASSIUM CHLORIDE 20 MEQ TAB.ER.PRT PO SCH ×2 (09:44→20:26)
[2020-12-19] MEDS: OMEPRAZOLE 20 MG CAPSULE.DR PO SCH (09:44)
[2020-12-19] MEDS: ASCORBIC ACID 500 MG TABLET PO SCH (09:45)
[2020-12-19] MEDS: SPIRONOLACTONE 25 MG TABLET PO SCH (09:45)
[2020-12-19] MEDS: [UNRECOGNIZED DRUG - OTHER] IV SCH ×2 (11:57→18:11)
[2020-12-19] MEDS: CEFAZOLIN IV SCH ×2 (11:57→18:11)
[2020-12-19] MEDS ORDERED: TIOTROPIUM BROMIDE 18 MCG/INH INH SCH (13:00)
[2020-12-19] MEDS: FLUTICASONE/VILANTEROL 100-25MCG/INH INH SCH (14:00)
[2020-12-19 14:42] VITALS: BP 107/56
[2020-12-19] MEDS: FERROUS SULFATE 325 MG TABLET PO SCH (20:26)
[2020-12-19] MEDS: MONTELUKAST 10 MG TABLET PO SCH (20:26)
[2020-12-19] MEDS: ATORVASTATIN 20 MG TABLET PO SCH (20:26)
[2020-12-19] MEDS: CEFAZOLIN PMX 2GM/50ML 50 ML IVPB SCH (20:26)
[2020-12-19] MEDS: AMLODIPINE 2.5 MG TABLET PO SCH (20:26)
[2020-12-19 21:38] VITALS: BP 100/55
[2020-12-20 00:25] VITALS: BP 119/63
[2020-12-20] MEDS: VITAMIN E 400 UNITS CAPSULE PO SCH (05:17)
[2020-12-20] MEDS: ENOXAPARIN 40 MG/0.4 ML SQ SCH (05:17)
[2020-12-20] MEDS: CEFAZOLIN PMX 2GM/50ML 50 ML IVPB SCH (05:17)
[2020-12-20 07:00] VITALS: BP 107/58
[2020-12-20] MEDS: TEMPLATE NON-FORMULARY MED. (Ambrisentan (Letairis**) 10 MG) HOMEMEDPO SCH (08:59)
[2020-12-20] MEDS: CALCIUM POLYCARBOPHIL 625 MG TABLET PO SCH (09:00)
[2020-12-20] MEDS: MULTIVITAMIN 1 TABLET PO SCH (09:00)
[2020-12-20] MEDS: CALCIUM/VITAMIN D3 250-125 TABLET PO SCH (09:00)
[2020-12-20] MEDS: FLUTICASONE/VILANTEROL 100-25MCG/INH INH SCH (09:00)
[2020-12-20] MEDS: POTASSIUM CHLORIDE 20 MEQ TAB.ER.PRT PO SCH (09:00)
[2020-12-20] MEDS: OMEGA-3/FISH OIL CAPSULE PO SCH (09:00)
[2020-12-20] MEDS: OMEPRAZOLE 20 MG CAPSULE.DR PO SCH (09:01)
[2020-12-20] MEDS: LEVOTHYROXINE 200 MCG TABLET PO SCH (09:01)
[2020-12-20] MEDS: ASCORBIC ACID 500 MG TABLET PO SCH (09:01)
[2020-12-20] MEDS: BUMETANIDE 1 MG TABLET PO SCH (09:01)
[2020-12-20] MEDS: CETIRIZINE 10 MG TABLET PO SCH (09:02)
[2020-12-20] MEDS: SPIRONOLACTONE 25 MG TABLET PO SCH (09:02)
[2020-12-20] MEDS ORDERED: SPIRIVA RESPIMAT INH SCH (14:00)
== END 2020-12-20 12:40 | disposition home or self-care (01) | DRG 872 ==
LOC: ED 12-16 00:05 → EDIP 12-16 00:47 → 4NE 12-16 02:57 → 3N 12-18 07:51 → UNDODISIN 12-20 08:58
PROVIDERS: ADMIT Internal Medicine; ATTEND Hospitalist
PROC: 02HV33Z Insertion of Infusion Device into Superior Vena Cava, Percutaneous Approach (ICD-10-PCS; principal; 2020-12-20)
PROC: B5181ZA Fluoroscopy of Superior Vena Cava using Low Osmolar Contrast, Guidance (ICD-10-PCS; 2020-12-20)
PROC: B548ZZA Ultrasonography of Superior Vena Cava, Guidance (ICD-10-PCS; 2020-12-20)
DX: R78.81 Bacteremia (principal); E87.1 Hypo-osmolality and hyponatremia; K72.90 Hepatic failure, unspecified without coma; G47.33 Obstructive sleep apnea (adult) (pediatric); Z20.822 Contact with and (suspected) exposure to COVID-19; I27.20 Pulmonary hypertension, unspecified; I10 Essential (primary) hypertension; E66.9 Obesity, unspecified; B95.7 Other staphylococcus as the cause of diseases classified elsewhere; D50.9 Iron deficiency anemia, unspecified; B19.20 Unspecified viral hepatitis C without hepatic coma; E03.9 Hypothyroidism, unspecified; E16.2 Hypoglycemia, unspecified; E78.5 Hyperlipidemia, unspecified; J45.909 Unspecified asthma, uncomplicated; K74.60 Unspecified cirrhosis of liver; Z80.3 Family history of malignant neoplasm of breast; Z90.710 Acquired absence of both cervix and uterus; Z79.899 Other long term (current) drug therapy; Z90.49 Acquired absence of other specified parts of digestive tract; Z68.32 Body mass index [BMI] 32.0-32.9, adult
CPT/HCPCS: 36415; 96365; 96375; 99285; J7626; 36573; 80048; 80202; 82040; 83735; 84100; 85025; 85651; 86140; 87040; 87635; 94640; G0378; J0690; J0696; J1650; J3370; C1751; J7040; J7050

== ENCOUNTER 2021-02-10 15:12 | Outpatient (CLI) | payer BC ==
[~2021-02-10 15:12] MED LIST changes: +CALC-112 PO; +FERR324T5 PO; +MULT-717 PO; +OMEP-110 PO
[2021-02-10] MEDS ORDERED: LIDOCAINE 1%, 10ML ONE (15:23)
[2021-02-20] MEDS ORDERED: ZINC50CA PO (11:29)
[2021-02-20] MEDS ORDERED: TIOT4MIS5 PO (11:29)
== END 2021-02-10 23:59 | disposition home or self-care (01) ==
LOC: RAD 15:12
PROVIDERS: ATTEND Internal Medicine Gastroenterology
DX: R18.8 Other ascites (principal); K74.60 Unspecified cirrhosis of liver
CPT/HCPCS: 49083; J3490

== ENCOUNTER → 2021-02-20 | Outpatient (CLI) | payer BC ==
[~2021-02-20] MED LIST changes: +TIOT4MIS5 PO; +ZINC50CA PO
[2021-02-20 11:36] LABS: BASOPHILS % (AUTO) 2 % (0-1); EOSINOPHILS % (AUTO) 5 % (1-7); LYMPHOCYTES % (AUTO) 16 % (22-44); MEAN CORPUSCULAR HEMOGLOBIN 30.4 pg (27.0-34.8); MEAN PLATELET VOLUME 8.4 fL (7.4-10.4); MONOCYTES % (AUTO) 15 % (2-9); NEUTROPHILS % (AUTO) 63 % (42-75); PLATELET COUNT 100 x10^3/uL (130-400); RED CELL DISTRIBUTION WIDTH 24.2 % (9.6-15.2)
[2021-02-20 11:41] LABS: ALANINE AMINOTRANSFERASE 49 U/L (12-78); ALBUMIN 2.9 g/dL (3.4-5.0); ANION GAP 5 mmol/L (5-15); CHLORIDE 109 mmol/L (98-107); CREATININE 0.77 mg/dL (0.55-1.02)
[2021-02-20 11:43] LABS: ALKALINE PHOSPHATASE 111 U/L (45-117); BILIRUBIN,TOTAL 1.5 mg/dL (0.2-1.0); TOTAL PROTEIN 6.5 g/dL (6.4-8.2)
== END | disposition home or self-care (01) ==
LOC: STAR 10:46
PROVIDERS: ATTEND Internal Medicine Gastroenterology
DX: Z01.812 Encounter for preprocedural laboratory examination (principal); Z20.822 Contact with and (suspected) exposure to COVID-19; K31.89 Other diseases of stomach and duodenum; D53.9 Nutritional anemia, unspecified; D12.2 Benign neoplasm of ascending colon
CPT/HCPCS: 36415; 80053; 85025; 87635; 93005

== ENCOUNTER 2021-02-26 07:03 | Day surgery (SDC) | payer BC ==
[~2021-02-26] VITALS: Ht 162.6 cm; Wt 83.5 kg
[2021-02-26 07:45] VITALS: BP 146/78
== END 2021-02-26 11:45 | disposition home or self-care (01) ==
LOC: OUT 07:03
PROVIDERS: ATTEND Internal Medicine Gastroenterology
DX: Z09 Encounter for follow-up examination after completed treatment for conditions other than malignant neoplasm (principal); D12.2 Benign neoplasm of ascending colon; D12.3 Benign neoplasm of transverse colon; K74.60 Unspecified cirrhosis of liver; I85.10 Secondary esophageal varices without bleeding; K76.6 Portal hypertension; K31.89 Other diseases of stomach and duodenum; K64.4 Residual hemorrhoidal skin tags; K64.1 Second degree hemorrhoids; D68.9 Coagulation defect, unspecified; D64.9 Anemia, unspecified; Z79.899 Other long term (current) drug therapy; Z86.010 Personal history of colon polyps
CPT/HCPCS: 43244; 45380; 88305; J2250; J2405; J2704; J3010; J7120